=== PATIENT | female | born 1955 | race Caucasian/White ===

== ENCOUNTER 2016-09-29 14:24 | Outpatient (CLI) | payer MEDICAID | END 2016-09-29 14:25 | DX: E87.6 Hypokalemia (principal) ==

== ENCOUNTER 2016-10-04 12:18 | Outpatient (CLI) | payer MEDICAID | END 2016-10-04 12:19 | disposition home or self-care (01) | DX: R93.8 Abnormal findings on diagnostic imaging of other specified body structures (principal); N83.201 Unspecified ovarian cyst, right side ==

== ENCOUNTER 2021-10-12 21:05 | Inpatient (IN) | payer MEDICAID ==
[2021-10-12 21:32] LABS: BASOPHILS # (AUTO) 0.1 10^3/uL (0.0-0.1); BASOPHILS % (AUTO) 0.4 %
[2021-10-12 21:34] LABS: HCT - HEMATOCRIT 45.9 % (37.0-47.0); HGB - HEMOGLOBIN 15.1 g/dL (12.0-16.0); LYMPHOCYTES # (AUTO) 1.4 10^3/uL (1.5-3.5); LYMPHOCYTES % (AUTO) 7.4 %; MEAN CORPUSCULAR HGB CONC 32.9 g/dL (32.0-36.0); MEAN CORPUSCULAR VOLUME 88.3 fL (81.0-99.0); MEAN PLATELET VOLUME 10.4 fL (7.9-10.8); MONOCYTES # (AUTO) 1.1 10^3/uL (0.0-1.0); NEUTROPHILS # (AUTO) 15.6 10^3/uL (1.5-6.6); NEUTROPHILS % (AUTO) 85.8 %; PLT - PLATELET COUNT 354 10^3/uL (130-450); RED CELL DISTRIBUTION WIDTH 13.6 % (12.0-15.0); WHITE BLOOD COUNT 18.2 x10^3/uL (4.8-10.8)
[2021-10-12 21:44] LABS: ALBUMIN/GLOBULIN RATIO 1.1 (1.0-2.2); BILIRUBIN,TOTAL 0.5 mg/dL (0.2-1.0); CALCIUM 9.3 mg/dL (8.5-10.3); CREATININE 1.5 mg/dL (0.4-1.0); TOTAL PROTEIN 7.6 g/dL (6.7-8.2)
[2021-10-12] MEDS ORDERED: MORPHINE 2 MG/ML CARPUJECT IVP STA (21:46)
[2021-10-12] MEDS ORDERED: ONDANSETRON 4 MG/2 ML VIAL IVP STA ×2 (21:46→22:52)
[2021-10-12] MEDS ORDERED: SODIUM CHLORIDE 0.9% 1,000 ML IV STA (21:46)
[2021-10-12] MEDS ORDERED: HYDROmorphone 1 MG/ML CARPUJECT IVP STA ×2 (21:49→22:52)
[2021-10-12] MEDS ORDERED: IOVERSOL 320 100 ML VIAL IVP ONE ×2 (22:01→22:44)
--- NOTE | 2021-10-12 23:14 | CT Report ---
PROCEDURE: Abdomen/Pelvis W INDICATIONS: RLQ pain CONTRAST: IV CONTRAST: Optiray 320 ml: 100 PO CONTRAST: *NO PO CONTRAST TECHNIQUE: After the administration of intravenous contrast, 5 mm thick sections acquired from the diaphragms to the symphysis. 5 mm thick coronal and sagittal reformats were acquired. For radiation dose reducti on, the following was used: automated exposure control, adjustment of mA and/or kV according to allie ent size. COMPARISON: None. FINDINGS: Image quality: Excellent. ABDOMEN: Lung bases: Lung bases are clear. Heart size is normal. Solid organs: Liver and spleen are normal in size and enhancement. Mild, diffuse fatty infiltration of the liver. Gallbladder is surgically absent. Biliary system is non dilated. Pancreas enhances no rmally. No adrenal nodules. Kidneys demonstrate normal size and enhancement, without hydronephrosis . Peritoneum and bowel: Bowel loops demonstrate normal wall thickness and caliber. Scattered diverticu li noted in the colon. Inflammatory changes noted adjacent to the distal sigmoid colon region of dive rticulitis compatible with diverticulitis. No peridiverticular abscess small locules of free air note d in the region of diverticulitis compatible with microperforation. No free fluid or air. The appendi x is normal. Nodes and vessels: No retroperitoneal or mesenteric adenopathy by size criteria. Aorta and inferior vena cava are normal in size. Scattered atherosclerotic calcifications are noted in the abdominal an d pelvic vasculature. Miscellaneous: Right. Median supraumbilical ventral hernias noted which contains a small amount of un remarkable appearing fat. Small periumbilical hernia noted. PELVIS: Genitourinary: Bladder wall thickness is normal. Uterus is absent. Miscellaneous: No inguinal hernias or adenopathy. Bones: No suspicious bony lesions. No vertebral body compression fractures. Spine degenerative disc disease and facet arthropathy are noted. IMPRESSION: 1. Sigmoid colon diverticulitis. No peridiverticular abscess. Small free air locules noted in the reg ion of diverticulitis compatible with microperforation. 2. Appendix is normal. Reviewed by: Abigail Jackson MD, PhD on 10/12/2021 11:13 PM PDT Approved by: Abigail Jackson MD, PhD on 10/12/2021 11:13 PM PDT Station ID: [id number]
[2021-10-12] MEDS ORDERED: PIPERACILLIN/TAZOBACTAM 3.375 GM in SODIUM CHLORIDE 0.9% MINIBAG 100 ML IV STA (23:21)
--- NOTE | 2021-10-12 23:23 | ED Physician Documentation ---
PD HPI ABD PAIN - Stated complaint Stated Complaint: LOW ABD PX - Chief complaint Chief Complaint: Abd Pain - History obtained from History obtained from: Patient - Additional information Additional information: Patient with a history of hypertension (Off all medications for the past 1 year due to lack of health insurance)Presenting for evaluation of right lower quadrant abdominal pain which is been intermittently present for the last week. She reports several episodes of loose stools over the last few days which has been nonbloody. She has had associated nausea but no emesis.Movement makes the pain worse. Nothing makes it better. She denies radiation to the back. She denies dysuria, hematuria or other UTI symptoms. She denies history of similar symptoms. She does have a history of previous abdominal surgeries Including cholecystectomy and hysterectomy.She denies fever, chest pain, difficulty breathing. 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 - Present Medications Home Medications: Ambulatory Orders Medication Instructions Recorded Confirmed Aspirin 81 mg ORAL DAILY 07/29/16 07/29/16 Benzonatate 100 mg ORAL TID 07/29/16 07/29/16 Cyclobenzaprine [Flexeril] 5 - 20 mg PO DAILY PM 07/29/16 07/29/16 Duloxetine HCl 60 mg ORAL DAILY 07/29/16 07/29/16 Fexofenadine HCl 180 mg ORAL DAILY PRN 07/29/16 07/29/16 Losartan [Cozaar] 50 mg ORAL DAILY 07/29/16 07/29/16 Omeprazole 40 mg ORAL DAILY 07/29/16 07/29/16 Potassium Chloride 20 meq PO TID 07/29/16 07/29/16 Propranolol [Inderal] 10 mg ORAL BID 07/29/16 07/29/16 Terbinafine [Lamisil] 250 mg ORAL DAILY 07/29/16 07/29/16 Topiramate 100 mg ORAL BID 07/29/16 07/29/16 traMADol [Ultram] 50 mg ORAL BID PRN 07/29/16 07/29/16 - Allergies Allergies/Adverse Reactions: Allergies Allergy/AdvReac Type Severity Reaction Status Date / Time No Known Drug Allergies Allergy Verified 10/12/21 21:12 - Social History Does the pt smoke?: No Smoking Status: Former smoker Does the pt drink ETOH?: No Does the pt have substance abuse?: No - Immunizations Immunizations are current?: Yes - POLST Patient has POLST: No PD ED PE NORMAL - General General: Alert and oriented X 3, No acute distress, Well developed/nourished - HEENT HEENT: Atraumatic, Moist mucous membranes - Neck Neck: Supple, no meningeal sign - Cardiac Cardiac: RRR, Strong equal pulses - Respiratory Respiratory: No respiratory distress, Clear bilaterally - Abdomen Abdomen: Normal bowel sounds, Soft, Other (Exam limited due to body habitus,Tenderness to her right and left lower quadrant, No guarding) - Back Back: No CVA TTP - Derm Derm: Normal color, Warm and dry - Extremities Extremities: No deformity - Neuro Neuro: Normal speech - Psych Psych: Normal mood, Normal affect Results - Vitals Vitals: Vital Signs - 24 hr 10/12/21 10/12/21 10/12/21 21:07 21:12 23:38 Temperature 37.3 C 37.3 C Heart Rate 96 93 86 Respiratory 20 16 18 Rate Blood Pressure 206/117 H 170/110 H 179/98 H O2 Saturation 96 96 93 Oxygen O2 Source Room air - Labs Labs: Laboratory Tests 10/12/21 10/12/21 21:26 21:26 WBC 18.2 H RBC 5.20 Hgb 15.1 Hct 45.9 MCV 88.3 MCH 29.0 MCHC 32.9 RDW 13.6 Plt Count 354 MPV 10.4 Neut # (Auto) 15.6 H Lymph # (Auto) 1.4 L [place] # (Auto) 1.1 H Eos # (Auto) 0.0 Baso # (Auto) 0.1 Absolute Nucleated RBC 0.00 Nucleated RBC % 0.0 Sodium 141 Potassium 3.0 L Chloride 104 Carbon Dioxide 23 Anion Gap 14.0 H BUN 21 H Creatinine 1.5 H Estimated GFR (MDRD) 35 L Glucose 190 H Calcium 9.3 Total Bilirubin 0.5 AST 19 ALT 19 Alkaline Phosphatase 108 Total Protein 7.6 Albumin 4.0 Globulin 3.6 Albumin/Globulin Ratio 1.1 Lipase 26 PD MEDICAL DECISION MAKING - ED course ED course: Patient presenting for evaluation of lower abdominal pain. Blood pressure is elevated and patient has been noncompliant with antihypertensives due to lack of health insurance.It did improve as her pain was controlled. Labs are significant for leukocytosis and hypokalemia.CT demonstrates sigmoid diverticulitis with microperforation. The case was discussed with the hospitalist who agrees to admit the patient. Also requested a surgical consult. I did consult Dr. Herrera who will follow with the patient. Departure - Departure Disposition: [facility] DC/Xfer Clinical Impression: Sigmoid diverticulitis, Hypokalemia, RACH (acute kidney injury) Leukocytosis Qualifiers: Leukocytosis type: unspecified Qualified Code(s): D72.829 - Elevated white blood cell count, unspecified Discharge Date/Time: 10/13/21 00:21
[2021-10-12] MEDS ORDERED: HYDROmorphone 0.5 MG/0.5 ML SYRINGE IVP PRN (23:41)
[2021-10-12] MEDS: POTASSIUM CHLOR 10 MEQ/100 ML 10 MEQ/100 ML BAG IV SCH (23:46)
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
[2021-10-13] MEDS: ACETAMINOPHEN 325 MG TABLET PO PRN ×4 (01:08→22:23)
[2021-10-13] MEDS: POTASSIUM CHLOR 10 MEQ/100 ML 10 MEQ/100 ML BAG IV SCH ×5 (01:26→09:19)
[2021-10-13] MEDS: LACTATED RINGERS 1,000 ML IV SCH ×2 (01:26→11:21)
[2021-10-13] MEDS: SODIUM CHLORIDE FLUSH 0.9% 10 ML SYRINGE IVP SCH ×5 (01:26→08:08)
[2021-10-13] MEDS: HYDROmorphone 0.5 MG/0.5 ML SYRINGE IVP PRN ×8 (01:50→23:20)
[2021-10-13] MEDS ORDERED: PIPERACILLIN/TAZOBACTAM 3.375 GM in SODIUM CHLORIDE 0.9% MINIBAG 100 ML IV SCH ×2 (04:00→05:00)
[2021-10-13 05:04] LABS: BILIRUBIN,URINE NEGATIVE (NEGATIVE); GLUCOSE, URINE (UA) NEGATIVE (NEGATIVE); KETONES,URINE (UA) TRACE mg/dL (NEGATIVE); LEUKOCYTE ESTERASE, URINE NEGATIVE (NEGATIVE); NITRITE,URINE NEGATIVE (NEGATIVE); OCCULT BLOOD,URINE NEGATIVE (NEGATIVE); PH,URINE 5.5 PH (5.0-7.5); PROTEIN,URINE 100 mg/dL (NEGATIVE); UROBILINOGEN,URINE 0.2 (NORMAL) E.U./dL (NORMAL)
[2021-10-13 05:05] LABS: CLARITY,URINE CLEAR (CLEAR)
[2021-10-13 05:07] LABS: BASOPHILS # (AUTO) 0.1 10^3/uL (0.0-0.1); BASOPHILS % (AUTO) 0.3 %; HCT - HEMATOCRIT 42.2 % (37.0-47.0); HGB - HEMOGLOBIN 13.8 g/dL (12.0-16.0); LYMPHOCYTES # (AUTO) 0.9 10^3/uL (1.5-3.5); LYMPHOCYTES % (AUTO) 4.5 %; MEAN CORPUSCULAR HEMOGLOBIN 29.5 pg (27.0-31.0); MEAN CORPUSCULAR HGB CONC 32.7 g/dL (32.0-36.0); MEAN CORPUSCULAR VOLUME 90.2 fL (81.0-99.0); MEAN PLATELET VOLUME 10.5 fL (7.9-10.8); MONOCYTES % (AUTO) 5.2 %; NEUTROPHILS # (AUTO) 17.6 10^3/uL (1.5-6.6); NEUTROPHILS % (AUTO) 89.3 %; PLT - PLATELET COUNT 310 10^3/uL (130-450); RED BLOOD COUNT 4.68 10^6/uL (4.20-5.40); RED CELL DISTRIBUTION WIDTH 13.7 % (12.0-15.0); WHITE BLOOD COUNT 19.7 x10^3/uL (4.8-10.8)
[2021-10-13 05:12] LABS: BACTERIA,URINE Few /HPF (None Seen); RBC,URINE None Seen /HPF (0-5); SQUAMOUS EPITHELIAL CELL,UR MANY Squamous (<= Few); WBC,URINE 0-3 /HPF (0-5)
[2021-10-13 05:20] LABS: CALCIUM 8.7 mg/dL (8.5-10.3); CREATININE 1.1 mg/dL (0.4-1.0); MAGNESIUM 1.6 mg/dL (1.7-2.8); PHOSPHORUS 3.5 mg/dL (2.5-4.6); POTASSIUM 3.4 mmol/L (3.5-5.0)
[2021-10-13] MEDS ORDERED: traMADol 50 MG TABLET PO PRN (06:00)
[2021-10-13] MEDS ORDERED: MAGNESIUM SULFATE 2 GRAM 2 GM/50 ML BAG IV ONE (07:29)
--- NOTE | 2021-10-13 07:36 | PROVIDER PROGRESS NOTE ---
Subjective - Prog Note Date Prog Note Date: 10/13/21 - Subjective Subjective: She states her pain is still a 7 out of 10 in her right lower quadrant. Still feels nauseous. No diarrhea today. She denies any pain in the left lower quadrant. Current Medications - Current Medications Current Medications: Active Medications Acetaminophen (Acetaminophen 325 Mg Tablet) 650 mg PO Q4HR PRN PRN Reason: Pain or Fever > 38C (100.4F) Last Admin: 10/13/21 01:08 Dose: 650 mg Amlodipine Besylate (Amlodipine 5 Mg Tablet) 5 mg PO DAILY [facility] Hydromorphone HCl (Hydromorphone 0.5 Mg/0.5 Ml Syringe) 1 mg IVP Q2H PRN PRN Reason: Pain 8 to 10 Last Admin: 10/13/21 07:02 Dose: 1 mg Lactated Ringer's (Lr) 1,000 mls @ 100 mls/hr IV .Q10H [facility] Last Admin: 10/13/21 01:26 Dose: 100 mls/hr Piperacillin Sod/Tazobactam (Sod 3.375 gm/ Sodium Chloride) 100 mls @ 25 mls/hr IV Q8H [facility] Last Admin: 10/13/21 05:06 Dose: 25 mls/hr Potassium Chloride (Potassium Chloride) 10 meq in 100 mls @ 100 mls/hr IV Q1H [facility] Stop: 10/13/21 09:59 Magnesium Sulfate (Magnesium Sulfate) 2 gm in 50 mls @ 50 mls/hr IV ONCE ONE Stop: 10/13/21 08:28 Losartan Potassium (Losartan 50 Mg Tablet) 50 mg PO DAILY [facility] Nystatin (Nystatin Powder 15 Gm) 1 applic TOP BID [facility] Ondansetron HCl (Ondansetron 4 Mg/2 Ml Vial) 4 mg IVP Q6HR PRN PRN Reason: Nausea / Vomiting Sodium Chloride (Sodium Chloride Flush 0.9% 10 Ml Syringe) 10 ml IVP PRN PRN PRN Reason: NEEDED PER PROVIDER ORDERS Sodium Chloride (Sodium Chloride Flush 0.9% 10 Ml Syringe) 10 ml IVP 0100,0900,1700 [facility] Last Admin: 10/13/21 07:03 Dose: 10 ml Aspirin 81 mg ORAL DAILY 07/29/16 Benzonatate 100 mg ORAL TID 07/29/16 Cyclobenzaprine [Flexeril] 5 - 20 mg PO DAILY PM 07/29/16 Duloxetine HCl 60 mg ORAL DAILY 07/29/16 Fexofenadine HCl 180 mg ORAL DAILY PRN 07/29/16 Losartan [Cozaar] 50 mg ORAL DAILY 07/29/16 Omeprazole 40 mg ORAL DAILY 07/29/16 Potassium Chloride 20 meq PO TID 07/29/16 Propranolol [Inderal] 10 mg ORAL BID 07/29/16 Terbinafine [Lamisil] 250 mg ORAL DAILY 07/29/16 Topiramate 100 mg ORAL BID 07/29/16 traMADol [Ultram] 50 mg ORAL BID PRN 07/29/16 Objective - Vital Signs/Intake & Output Reviewed Vital Signs: Yes Vital Signs: Vital Signs x48h Temp Pulse Pulse Resp BP BP Pulse Ox 10/13/21 07:04 78 17 192/87 H 98 10/13/21 03:42 36.9 C 84 17 190/99 H 97 10/13/21 02:52 86 18 84 L 10/13/21 02:45 18 93 10/13/21 00:37 36.1 C L 89 20 179/94 H 95 10/12/21 23:38 86 18 179/98 H 93 Intake & Output: Intake & Output 10/10/21 10/11/21 10/12/21 10/13/21 22:59 23:59 23:59 23:59 Intake Total 300 1750 Output Total 300 Balance 300 1450 - Objective General Appearance: positive: Other (She is lethargic and will quickly fall asleep. Will wake up when aroused but will doze off during our conversation) Eyes Bilateral: positive: Conjunctivae nml ENT: positive: ENT inspection nml Neck: positive: Nml inspection Respiratory: positive: No respiratory distress. negative: Wheezes, Rales Cardiovascular: positive: Regular rate & rhythm. negative: Tachycardia Abdomen: positive: Tenderness (Right lower quadrant tenderness.), Other (Large pannus.). negative: Rebound Skin: positive: Warm, Dry Extremities: positive: No pedal edema Neurologic/Psychiatric: negative: Disoriented to person, Disoriented to place - Lab Results Fish Bones: 10/13/21 04:52 10/13/21 04:52 Other Labs: Lab Results x24hrs 10/13/21 10/13/21 10/13/21 Range/Units 04:52 04:52 04:52 WBC 19.7 H (4.8-10.8) x10^3/uL RBC 4.68 (4.20-5.40) 10^6/uL Hgb 13.8 (12.0-16.0) g/dL Hct 42.2 (37.0-47.0) % MCV 90.2 (81.0-99.0) fL MCH 29.5 (27.0-31.0) pg MCHC 32.7 (32.0-36.0) g/dL RDW 13.7 (12.0-15.0) % Plt Count 310 (130-450) 10^3/uL MPV 10.5 (7.9-10.8) fL Neut # (Auto) 17.6 H (1.5-6.6) 10^3/uL Lymph # (Auto) 0.9 L (1.5-3.5) 10^3/uL [place] # (Auto) 1.0 (0.0-1.0) 10^3/uL Eos # (Auto) 0.0 (0.0-0.7) 10^3/uL Baso # (Auto) 0.1 (0.0-0.1) 10^3/uL Absolute Nucleated RBC 0.00 x10^3/uL Nucleated RBC % 0.0 /100WBC Sodium 137 (135-145) mmol/L Potassium 3.4 L (3.5-5.0) mmol/L Chloride 102 (101-111) mmol/L Carbon Dioxide 21 (21-32) mmol/L Anion Gap 14.0 H (6-13) BUN 19 (6-20) mg/dL Creatinine 1.1 H (0.4-1.0) mg/dL Estimated GFR (MDRD) 50 L (>89) Glucose 171 H (70-100) mg/dL Calcium 8.7 (8.5-10.3) mg/dL Phosphorus 3.5 (2.5-4.6) mg/dL Magnesium 1.6 L (1.7-2.8) mg/dL Total Bilirubin (0.2-1.0) mg/dL AST (10-42) IU/L ALT (10-60) IU/L Alkaline Phosphatase (42-121) IU/L Total Protein (6.7-8.2) g/dL Albumin (3.2-5.5) g/dL Globulin (2.1-4.2) g/dL Albumin/Globulin Ratio (1.0-2.2) Lipase (22-51) U/L TSH 2.16 (0.34-5.60) uIU/mL Urine Color Urine Clarity (CLEAR) Urine pH (5.0-7.5) PH Ur Specific [place] (1.002-1.030) Urine Protein (NEGATIVE) mg/dL Urine Glucose (UA) (NEGATIVE) mg/dL Urine Ketones (NEGATIVE) mg/dL Urine Occult Blood (NEGATIVE) Urine Nitrite (NEGATIVE) Urine Bilirubin (NEGATIVE) Urine Urobilinogen (NORMAL) E.U./dL Ur Leukocyte Esterase (NEGATIVE) Urine RBC (0-5) /HPF Urine WBC (0-5) /HPF Ur Squamous Epith Cells (<= Few) Urine Bacteria (None Seen) /HPF Ur Microscopic Review Urine Culture Comments SARS-CoV-2 (PCR) 10/13/21 10/12/21 10/12/21 Range/Units 04:20 23:27 21:26 WBC (4.8-10.8) x10^3/uL RBC (4.20-5.40) 10^6/uL Hgb (12.0-16.0) g/dL Hct (37.0-47.0) % MCV (81.0-99.0) fL MCH (27.0-31.0) pg MCHC (32.0-36.0) g/dL RDW (12.0-15.0) % Plt Count (130-450) 10^3/uL MPV (7.9-10.8) fL Neut # (Auto) (1.5-6.6) 10^3/uL Lymph # (Auto) (1.5-3.5) 10^3/uL [place] # (Auto) (0.0-1.0) 10^3/uL Eos # (Auto) (0.0-0.7) 10^3/uL Baso # (Auto) (0.0-0.1) 10^3/uL Absolute Nucleated RBC x10^3/uL Nucleated RBC % /100WBC Sodium 141 (135-145) mmol/L Potassium 3.0 L (3.5-5.0) mmol/L Chloride 104 (101-111) mmol/L Carbon Dioxide 23 (21-32) mmol/L Anion Gap 14.0 H (6-13) BUN 21 H (6-20) mg/dL Creatinine 1.5 H (0.4-1.0) mg/dL Estimated GFR (MDRD) 35 L (>89) Glucose 190 H (70-100) mg/dL Calcium 9.3 (8.5-10.3) mg/dL Phosphorus (2.5-4.6) mg/dL Magnesium (1.7-2.8) mg/dL Total Bilirubin 0.5 (0.2-1.0) mg/dL AST 19 (10-42) IU/L ALT 19 (10-60) IU/L Alkaline Phosphatase 108 (42-121) IU/L Total Protein 7.6 (6.7-8.2) g/dL Albumin 4.0 (3.2-5.5) g/dL Globulin 3.6 (2.1-4.2) g/dL Albumin/Globulin Ratio 1.1 (1.0-2.2) Lipase 26 (22-51) U/L TSH (0.34-5.60) uIU/mL Urine Color YELLOW Urine Clarity CLEAR (CLEAR) Urine pH 5.5 (5.0-7.5) PH Ur Specific [place] 1.020 (1.002-1.030) Urine Protein 100 H (NEGATIVE) mg/dL Urine Glucose (UA) NEGATIVE (NEGATIVE) mg/dL Urine Ketones TRACE (NEGATIVE) mg/dL Urine Occult Blood NEGATIVE (NEGATIVE) Urine Nitrite NEGATIVE (NEGATIVE) Urine Bilirubin NEGATIVE (NEGATIVE) Urine Urobilinogen 0.2 (NORMAL) (NORMAL) E.U./dL Ur Leukocyte Esterase NEGATIVE (NEGATIVE) Urine RBC None Seen (0-5) /HPF Urine WBC 0-3 (0-5) /HPF Ur Squamous Epith Cells MANY Squamous H (<= Few) Urine Bacteria Few (None Seen) /HPF Ur Microscopic Review INDICATED Urine Culture Comments NOT INDICATED SARS-CoV-2 (PCR) NOT DETECTED 10/12/21 Range/Units 21:26 WBC 18.2 H (4.8-10.8) x10^3/uL RBC 5.20 (4.20-5.40) 10^6/uL Hgb 15.1 (12.0-16.0) g/dL Hct 45.9 (37.0-47.0) % MCV 88.3 (81.0-99.0) fL MCH 29.0 (27.0-31.0) pg MCHC 32.9 (32.0-36.0) g/dL RDW 13.6 (12.0-15.0) % Plt Count 354 (130-450) 10^3/uL MPV 10.4 (7.9-10.8) fL Neut # (Auto) 15.6 H (1.5-6.6) 10^3/uL Lymph # (Auto) 1.4 L (1.5-3.5) 10^3/uL [place] # (Auto) 1.1 H (0.0-1.0) 10^3/uL Eos # (Auto) 0.0 (0.0-0.7) 10^3/uL Baso # (Auto) 0.1 (0.0-0.1) 10^3/uL Absolute Nucleated RBC 0.00 x10^3/uL Nucleated RBC % 0.0 /100WBC Sodium (135-145) mmol/L Potassium (3.5-5.0) mmol/L Chloride (101-111) mmol/L Carbon Dioxide (21-32) mmol/L Anion Gap (6-13) BUN (6-20) mg/dL Creatinine (0.4-1.0) mg/dL Estimated GFR (MDRD) (>89) Glucose (70-100) mg/dL Calcium (8.5-10.3) mg/dL Phosphorus (2.5-4.6) mg/dL Magnesium (1.7-2.8) mg/dL Total Bilirubin (0.2-1.0) mg/dL AST (10-42) IU/L ALT (10-60) IU/L Alkaline Phosphatase (42-121) IU/L Total Protein (6.7-8.2) g/dL Albumin (3.2-5.5) g/dL Globulin (2.1-4.2) g/dL Albumin/Globulin Ratio (1.0-2.2) Lipase (22-51) U/L TSH (0.34-5.60) uIU/mL Urine Color Urine Clarity (CLEAR) Urine pH (5.0-7.5) PH Ur Specific [place] (1.002-1.030) Urine Protein (NEGATIVE) mg/dL Urine Glucose (UA) (NEGATIVE) mg/dL Urine Ketones (NEGATIVE) mg/dL Urine Occult Blood (NEGATIVE) Urine Nitrite (NEGATIVE) Urine Bilirubin (NEGATIVE) Urine Urobilinogen (NORMAL) E.U./dL Ur Leukocyte Esterase (NEGATIVE) Urine RBC (0-5) /HPF Urine WBC (0-5) /HPF Ur Squamous Epith Cells (<= Few) Urine Bacteria (None Seen) /HPF Ur Microscopic Review Urine Culture Comments SARS-CoV-2 (PCR) ABX Reporting Has patient been on IV antibiotics over the past 48 hours?: Yes Assessment/Plan - Problem List (1) Sigmoid diverticulitis Impression: CT confirmed sigmoid diverticulitis with microperforations. She still has ab dominal pain although she does quickly fall asleep on my examination which I suspect is related to the Dilaudid she is receiving. Her white blood cell count is also elevated and slightly increased compared to yesterday. Spoke with general surgery and they have recommended broadening her antibiotics to vancomycin, cefepime, Flagyl IV. They also recommended making her n.p.o. with sips so we will change this. We will continue IV hydration. Pain control Dilaudid as needed. Will need to consider repeat imaging if there is no clinical improvement over the next 48 hours or so. (2) RACH (acute kidney injury) Impression: This is now resolved. This was secondary to hypovolemia secondary to GI losses. Her creatinine is now 1.1 compared to 1.5 on admission. Her baseline is approximately 1.0. We will resume losartan for her hypertension today. We will continue with gentle IV hydration as she remains on clear liquid diet. (3) HTN (hypertension) Impression: She remains quite hypertensive with systolics in the 190s. We will start her on 5 mg of amlodipine and losartan 50 mg today. (4) Hypokalemia Impression: This was likely secondary to GI losses. Potassium is improved but still decreased at 3.4. We will replace this as well as the hypomagnesemia. (5) Fibromyalgia Impression: It appears she was previously on fluoxetine for her fibromyalgia. We will look to resume this.
[2021-10-13] MEDS: LOSARTAN 50 MG TABLET PO SCH (08:08)
[2021-10-13] MEDS: amLODIPine 5 MG TABLET PO SCH (08:08)
[2021-10-13] MEDS: ONDANSETRON 4 MG/2 ML VIAL IVP PRN ×3 (08:17→21:59)
--- NOTE | 2021-10-13 10:59 | PHARMACY PROGRESS NOTE ---
- Best Possible Medication History Admit Date and Time: 10/12/21 6133 Processed by: Pharmacy Medication History completed: Yes Patient Interview: Pt interview ONLY source As the person ultimately responsible for medication therapy, providers are able to order a medication from an existing home medication list in [facility] via the "Reconcile Routine" prior to Confirmation of that medication by computer network support specialist. Such practice is discouraged except when the physician, in their clinical judgment, deems that a medical need exists for a medication without regard to previous use.
[2021-10-13] MEDS: NYSTATIN POWDER 15 GM TOP SCH ×2 (11:20→20:16)
[2021-10-13] MEDS: SODIUM CHLORIDE FLUSH 0.9% 10 ML SYRINGE IVP PRN ×4 (11:21→23:19)
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
[2021-10-13] MEDS: metroNIDAZOLE 500 MG/100 ML 500 MG/100 ML BAG IV SCH ×2 (12:50→18:52)
[2021-10-13] MEDS ORDERED: VANCOMYCIN INJ 2 GM, VANCOMYCIN INJ 500 MG in SODIUM CHLORIDE 0.9% 500 ML IV SCH (13:00)
[2021-10-13 13:07] LABS: ESTIMATED AVERAGE GLUCOSE 137 mg/dL (70-100); HEMOGLOBIN A1c% 6.4 % (4.27-6.07)
--- NOTE | 2021-10-13 13:15 | PHARMACY PROGRESS NOTE ---
- Therapy Status Vancomycin regimen day #: 1 Therapy status: Awaiting steady state Basis for treatment: Empirical Treatment indication: SEPSIS Trough goal: 15-20 Concurrent antibiotics: CEFEPIME AND METRONIDAZOLE - RACH Risk Risk level for Acute Kidney Injury: High Acute Kidney Injury risk factors: Wt >100kg or BMI >40, IV contrast within 72 hrs, Goal trough >15, Chronic baseline hypertension, Diabetes, Admission to ICU, Sepsis - Monitoring and Recommendation Clinical response to treatment: I&O Previous 24 hours 10/11/21 10/12/21 10/13/21 23:59 23:59 23:59 Intake Total 300 3091.667 Output Total 300 Balance 300 2791.667 Lab Results 10/13/21 10/12/21 04:52 21:26 BUN 19 21 H Creatinine 1.1 H 1.5 H Estimated GFR (MDRD) 50 L 35 L Monitoring plan: Daily serum creatinine, Suggest ongoing fluid replacement Next trough due prior to maintenance dose #: 4 Next trough due (date/time): 10/17/21 @ 1300 Areas for additional monitoring: IV to PO when appropriate, Therapy de- escalation based on culture results, Acute Kidney Injury Pharmacy recommendation: Continue current regime
[2021-10-13] MEDS: CEFEPIME 2 GM in SODIUM CHLORIDE 0.9% MINIBAG 100 ML IV SCH (20:17)
[2021-10-14] MEDS: LACTATED RINGERS 1,000 ML IV SCH ×3 (00:12→20:10)
[2021-10-14] MEDS: HYDROmorphone 0.5 MG/0.5 ML SYRINGE IVP PRN ×4 (01:33→16:16)
[2021-10-14] MEDS: metroNIDAZOLE 500 MG/100 ML 500 MG/100 ML BAG IV SCH ×3 (03:58→20:24)
[2021-10-14] MEDS: ONDANSETRON 4 MG/2 ML VIAL IVP PRN ×2 (04:37)
[2021-10-14 05:56] LABS: BASOPHILS % (AUTO) 0.2 %; EOSINOPHILS # (AUTO) 0.1 10^3/uL (0.0-0.7); EOSINOPHILS % (AUTO) 0.5 %; HCT - HEMATOCRIT 39.4 % (37.0-47.0); HGB - HEMOGLOBIN 12.3 g/dL (12.0-16.0); LYMPHOCYTES # (AUTO) 0.7 10^3/uL (1.5-3.5); LYMPHOCYTES % (AUTO) 4.1 %; MEAN CORPUSCULAR HEMOGLOBIN 28.8 pg (27.0-31.0); MEAN CORPUSCULAR HGB CONC 31.2 g/dL (32.0-36.0); MEAN CORPUSCULAR VOLUME 92.3 fL (81.0-99.0); MEAN PLATELET VOLUME 10.8 fL (7.9-10.8); MONOCYTES # (AUTO) 0.7 10^3/uL (0.0-1.0); MONOCYTES % (AUTO) 4.2 %; NEUTROPHILS # (AUTO) 14.9 10^3/uL (1.5-6.6); NEUTROPHILS % (AUTO) 90.3 %; PLT - PLATELET COUNT 266 10^3/uL (130-450); RED BLOOD COUNT 4.27 10^6/uL (4.20-5.40); RED CELL DISTRIBUTION WIDTH 14.1 % (12.0-15.0); WHITE BLOOD COUNT 16.5 x10^3/uL (4.8-10.8)
[2021-10-14 06:01] LABS: CALCIUM 8.9 mg/dL (8.5-10.3); CREATININE 0.9 mg/dL (0.4-1.0); POTASSIUM 3.8 mmol/L (3.5-5.0)
[2021-10-14] MEDS ORDERED: TOPIRAMATE 25 MG TABLET PO SCH ×2 (06:30→09:00)
[2021-10-14] MEDS ORDERED: SUMAtriptan 6 MG/0.5 ML VIAL SUBQ ONE (06:41)
[2021-10-14] MEDS ORDERED: PROCHLORPERAZINE 10 MG/2 ML VIAL IVP PRN (06:41)
--- NOTE | 2021-10-14 07:44 | PROVIDER PROGRESS NOTE ---
Subjective - Prog Note Date Prog Note Date: 10/14/21 - Subjective Subjective: She feels improved today. Still has a headache which is about a 4 out of 10. Her right that abdominal pain is a 4 out of 10 today. No nausea or vomiting. She not have much of an appetite. Current Medications - Current Medications Current Medications: Active Medications Acetaminophen (Acetaminophen 325 Mg Tablet) 650 mg PO Q4HR PRN PRN Reason: Pain or Fever > 38C (100.4F) Last Admin: 10/13/21 22:23 Dose: 650 mg Acetaminophen/Butalbital/Caffeine (Butalb/Acetam/Caff 50/325/40mg Tablet) 1 tab PO Q4HR PRN PRN Reason: HEADACHE Amlodipine Besylate (Amlodipine 5 Mg Tablet) 5 mg PO DAILY [facility] Last Admin: 10/13/21 08:08 Dose: 5 mg Hydralazine HCl (Hydralazine Inj 20 Mg/Ml Vial) 10 mg IVP Q4HR PRN PRN Reason: SBP>170 or DBP>100 Hydromorphone HCl (Hydromorphone 0.5 Mg/0.5 Ml Syringe) 1 mg IVP Q2H PRN PRN Reason: Pain 8 to 10 Last Admin: 10/14/21 04:21 Dose: 1 mg Lactated Ringer's (Lr) 1,000 mls @ 100 mls/hr IV .Q10H [facility] Last Admin: 10/14/21 00:12 Dose: 100 mls/hr Cefepime HCl 2 gm/ Sodium (Chloride) 100 mls @ 200 mls/hr IV BID [facility] Last Infusion: 10/13/21 20:52 Dose: Infused Metronidazole (Flagyl 500 Mg/100 Ml) 500 mg in 100 mls @ 100 mls/hr IV Q8H [facility] Last Infusion: 10/14/21 05:00 Dose: Infused Vancomycin HCl 1 gm/Vancomycin HCl 500 mg/ Sodium Chloride 500 mls @ 250 mls/hr IV Q18H [facility] Losartan Potassium (Losartan 50 Mg Tablet) 50 mg PO DAILY [facility] Last Admin: 10/13/21 08:08 Dose: 50 mg Nystatin (Nystatin Powder 15 Gm) 1 applic TOP BID [facility] Last Admin: 10/13/21 20:16 Dose: 1 applic Ondansetron HCl (Ondansetron 4 Mg/2 Ml Vial) 4 mg IVP Q4HR PRN PRN Reason: Nausea / Vomiting Last Admin: 10/14/21 04:37 Dose: 4 mg Prochlorperazine Edisylate (Prochlorperazine 10 Mg/2 Ml Vial) 10 mg IVP Q6HR PRN PRN Reason: Nausea / Vomiting Sodium Chloride (Sodium Chloride Flush 0.9% 10 Ml Syringe) 10 ml IVP PRN PRN PRN Reason: NEEDED PER PROVIDER ORDERS Last Admin: 10/13/21 23:19 Dose: 10 ml Sodium Chloride (Sodium Chloride Flush 0.9% 10 Ml Syringe) 10 ml IVP 0100,0900,1700 [facility] Last Admin: 10/13/21 08:08 Dose: 10 ml No Known Home Medications 10/13/21 Objective - Vital Signs/Intake & Output Reviewed Vital Signs: Yes Vital Signs: Vital Signs x48h Temp Pulse Resp BP BP Pulse Ox 10/14/21 04:51 36.6 C 73 20 192/90 H 98 10/14/21 00:04 36.3 C L 67 21 198/81 H 96 Intake & Output: Intake & Output 10/11/21 10/12/21 10/13/21 10/14/21 23:59 23:59 23:59 23:59 Intake Total 300 4453.334 473.333 Output Total 1000 225 Balance 300 3453.334 248.333 - Objective General Appearance: positive: No acute distress, Alert Eyes Bilateral: positive: Normal inspection, Conjunctivae nml ENT: positive: ENT inspection nml Neck: positive: Nml inspection Respiratory: positive: No respiratory distress. negative: Wheezes, Rales Cardiovascular: positive: Regular rate & rhythm. negative: Tachycardia Abdomen: positive: No distention, Tenderness (Right lower quadrant). negative: Guarding, Rebound Skin: positive: Warm, Dry Neurologic/Psychiatric: negative: Disoriented to person, Disoriented to place - Lab Results Fish Bones: 10/14/21 04:32 10/14/21 04:32 Other Labs: Lab Results x24hrs 10/14/21 10/14/21 10/13/21 Range/Units 04:32 04:32 04:52 WBC 16.5 H (4.8-10.8) x10^3/uL RBC 4.27 (4.20-5.40) 10^6/uL Hgb 12.3 (12.0-16.0) g/dL Hct 39.4 (37.0-47.0) % MCV 92.3 (81.0-99.0) fL MCH 28.8 (27.0-31.0) pg MCHC 31.2 L (32.0-36.0) g/dL RDW 14.1 (12.0-15.0) % Plt Count 266 (130-450) 10^3/uL MPV 10.8 (7.9-10.8) fL Neut # (Auto) 14.9 H (1.5-6.6) 10^3/uL Lymph # (Auto) 0.7 L (1.5-3.5) 10^3/uL [place] # (Auto) 0.7 (0.0-1.0) 10^3/uL Eos # (Auto) 0.1 (0.0-0.7) 10^3/uL Baso # (Auto) 0.0 (0.0-0.1) 10^3/uL Absolute Nucleated RBC 0.00 x10^3/uL Nucleated RBC % 0.0 /100WBC Sodium 139 (135-145) mmol/L Potassium 3.8 (3.5-5.0) mmol/L Chloride 100 L (101-111) mmol/L Carbon Dioxide 26 (21-32) mmol/L Anion Gap 13.0 (6-13) BUN 15 (6-20) mg/dL Creatinine 0.9 (0.4-1.0) mg/dL Estimated GFR (MDRD) 63 L (>89) Glucose 144 H (70-100) mg/dL Estimat Average Glucose 137 H (70-100) mg/dL Hemoglobin A1c % 6.4 H (4.27-6.07) % Calcium 8.9 (8.5-10.3) mg/dL Magnesium 2.0 (1.7-2.8) mg/dL ABX Reporting Has patient been on IV antibiotics over the past 48 hours?: Yes Assessment/Plan - Problem List (1) Sigmoid diverticulitis Impression: She appears improved as her pain has decreased and her white blood cell count is also improving. Yesterday we broadened her antibiotics to vancomycin, Cefepime, Flagyl. If she continues to improve then we will discontinue the vancomycin as the cefepime and Flagyl should provide adequate coverage for gram-negative's and anaerobes. We will keep her n.p.o. but if she continues to improve we will look to advance her to clear liquid diet in the morning. Pain control with Dilaudid, Toradol as needed. Zofran as needed for nausea. Appreciate general surgery input. (2) HTN (hypertension) Impression: She remains quite hypertensive with systolics in the 190s. Yesterday we had resumed amlodipine and losartan. I will increase these to 10 mg and 100 mg respectively. She also informed today she was on spironolactone and we will consider adding this as well. (3) Headache Impression: This is chronic problem for her and she was previously on Topamax with Excedrin as needed. Do not have Topamax available here but we will prescribe Fioricet as needed for her headache. We will also look to restart Topamax 25 mg daily on discharge and she can follow-up with her primary care physician to have this titrated back to her previous dose of 100 mg. (4) Fibromyalgia Impression: Stable. She will need outpatient follow-up with her primary care physician for management of this once discharged. (5) Hypokalemia Impression: This was secondary to GI losses and has resolved. (6) RACH (acute kidney injury) Impression: This is now resolved and is likely due to hypovolemia.
[2021-10-14] MEDS: amLODIPine 5 MG TABLET PO SCH (08:03)
[2021-10-14] MEDS: LOSARTAN 50 MG TABLET PO SCH (08:04)
[2021-10-14] MEDS: VANCOMYCIN INJ 1 GM, VANCOMYCIN INJ 500 MG in SODIUM CHLORIDE 0.9% 500 ML IV SCH (08:08)
[2021-10-14] MEDS: NYSTATIN POWDER 15 GM TOP SCH ×2 (08:14→21:09)
[2021-10-14] MEDS: CEFEPIME 2 GM in SODIUM CHLORIDE 0.9% MINIBAG 100 ML IV SCH ×2 (10:17→21:40)
[2021-10-14] MEDS: BUTALB/ACETAM/CAFF 50/325/40MG TABLET PO PRN ×2 (10:23→17:56)
[2021-10-14] MEDS: ENOXAPARIN 40 MG/0.4 ML SYRINGE SUBQ SCH (10:24)
[2021-10-14] MEDS: KETOROLAC 15 MG/ML VIAL IVP PRN (10:24)
[2021-10-14] MEDS ORDERED: amLODIPine 5 MG TABLET PO STA (12:48)
--- NOTE | 2021-10-14 12:53 | PHARMACY PROGRESS NOTE ---
- Best Possible Medication History Admit Date and Time: 10/12/21 4394 Processed by: Nursing Medication History completed: Yes Patient Interview: Completed Secondary Source(s): Written medication list Patient provided nursing with a list of medications she was on. RN, Paige, reviewed each medication on the list with the patient and patient states these should all be included on her medication list. Per admission note, patient has not had a PCP so has not been taking her routine prescription medications. List was updated to reflect prior medications if provider wishes to restart any of them. As the person ultimately responsible for medication therapy, providers are able to order a medication from an existing home medication list in [facility] via the "Reconcile Routine" prior to Confirmation of that medication by senior office support assistant sosa. Such practice is discouraged except when the physician, in their clinical judgment, deems that a medical need exists for a medication without regard to previous use.
[2021-10-14] MEDS: SODIUM CHLORIDE FLUSH 0.9% 10 ML SYRINGE IVP PRN (13:15)
[2021-10-14] MEDS: SODIUM CHLORIDE FLUSH 0.9% 10 ML SYRINGE IVP SCH (16:28)
--- NOTE | 2021-10-14 17:53 | PROVIDER PROGRESS NOTE ---
Subjective - General Admit Date: 10/12/21 - Review of Systems All Other Systems: positive: Reviewed and negative - Other Other Information/Narrative: Lexus is remarkably better today than she was at the date of admission. She is awake and alert and able to hold a clear conversation. She says that she only has difficulty with pain when she moves. Her headache is better and her abdominal pain is better.She is not particularly hungry but she says she could eat. Objective - Patient Data Reviewed Vital Signs: Yes Vital Signs: Vital Signs x48h Temp Pulse Pulse Resp BP Pulse Ox 10/14/21 15:33 36.5 C 68 19 153/84 H 96 10/14/21 12:47 69 188/94 H 10/14/21 12:02 36.8 C 67 20 95 10/14/21 11:49 36.8 C 67 20 192/97 H 93 Weight: Weight 10/12/21 10/13/21 10/14/21 23:59 23:59 23:59 Weight (kg) 108.862 kg 106 kg 108 kg Intake & Output: Intake and Output Totals x24h 10/12/21 10/13/21 10/14/21 23:59 23:59 23:59 Intake Total 300 4453.334 1975.000 Output Total 1000 700 Balance 300 3453.334 1275.000 - Lab Results Lab Results: 10/15/21 04:28 10/15/21 04:28 Other Lab Results: Lab Results x24hrs 10/14/21 10/14/21 Range/Units 04:32 04:32 WBC 16.5 H (4.8-10.8) x10^3/uL RBC 4.27 (4.20-5.40) 10^6/uL Hgb 12.3 (12.0-16.0) g/dL Hct 39.4 (37.0-47.0) % MCV 92.3 (81.0-99.0) fL MCH 28.8 (27.0-31.0) pg MCHC 31.2 L (32.0-36.0) g/dL RDW 14.1 (12.0-15.0) % Plt Count 266 (130-450) 10^3/uL MPV 10.8 (7.9-10.8) fL Neut # (Auto) 14.9 H (1.5-6.6) 10^3/uL Lymph # (Auto) 0.7 L (1.5-3.5) 10^3/uL [place] # (Auto) 0.7 (0.0-1.0) 10^3/uL Eos # (Auto) 0.1 (0.0-0.7) 10^3/uL Baso # (Auto) 0.0 (0.0-0.1) 10^3/uL Absolute Nucleated RBC 0.00 x10^3/uL Nucleated RBC % 0.0 /100WBC Sodium 139 (135-145) mmol/L Potassium 3.8 (3.5-5.0) mmol/L Chloride 100 L (101-111) mmol/L Carbon Dioxide 26 (21-32) mmol/L Anion Gap 13.0 (6-13) BUN 15 (6-20) mg/dL Creatinine 0.9 (0.4-1.0) mg/dL Estimated GFR (MDRD) 63 L (>89) Glucose 144 H (70-100) mg/dL Calcium 8.9 (8.5-10.3) mg/dL Magnesium 2.0 (1.7-2.8) mg/dL - Current Medications Current Medications: Current Medications Generic Name Dose Route Start Last Admin Trade Name Freq PRN Reason Stop Dose Admin Acetaminophen 650 mg 10/12/21 23:41 10/13/21 22:23 Acetaminophen 325 Mg Tablet PO 650 mg Q4HR PRN Administration Pain or Fever > 38C (100.4F) Acetaminophen/Butalbital/Caffeine 1 tab 10/14/21 06:40 10/14/21 10:23 Butalb/Acetam/Caff 50/325/40mg Tablet PO 1 tab Q4HR PRN Administration HEADACHE Enoxaparin Sodium 40 mg 10/14/21 11:00 10/14/21 10:24 Enoxaparin 40 Mg/0.4 Ml Syringe SUBQ 40 mg DAILY [facility]STOPE[facility] Administration Hydromorphone HCl 1 mg 10/13/21 00:44 10/14/21 16:16 Hydromorphone 0.5 Mg/0.5 Ml Syringe IVP 1 mg Q2H PRN Administration Pain 8 to 10 Lactated Ringer's 1,000 mls @ 100 mls/hr 10/12/21 23:45 10/14/21 12:47 Lr IV 100 mls/hr .Q10H [facility] Infusion Cefepime HCl 2 gm/ Sodium 100 mls @ 200 mls/hr 10/13/21 21:00 10/14/21 10:55 Chloride IV Infused BID [facility] Infusion Metronidazole 500 mg in 100 mls @ 100 mls/hr 10/13/21 12:00 10/14/21 12:10 Flagyl 500 Mg/100 Ml IV Infused Q8H [facility] Infusion Vancomycin HCl 1 gm/ 500 mls @ 250 mls/hr 10/14/21 08:00 10/14/21 10:15 Vancomycin HCl 500 mg/ Sodium IV Infused Chloride Q18H [facility] Infusion Ketorolac Tromethamine 15 mg 10/14/21 10:08 10/14/21 10:24 Ketorolac 15 Mg/Ml Vial IVP 10/19/21 10:07 15 mg Q6HR PRN Administration PAIN Nystatin 1 applic 10/13/21 09:00 10/14/21 08:14 Nystatin Powder 15 Gm TOP 1 applic BID [facility]STOPHER Administration Ondansetron HCl 4 mg 10/13/21 21:54 10/14/21 04:37 Ondansetron 4 Mg/2 Ml Vial IVP 4 mg Q4HR PRN Administration Nausea / Vomiting Sodium Chloride 10 ml 10/12/21 23:41 10/14/21 13:15 Sodium Chloride Flush 0.9% 10 Ml Syringe IVP 10 ml PRN PRN Administration NEEDED PER PROVIDER ORDERS Sodium Chloride 10 ml 10/13/21 01:00 10/14/21 16:28 Sodium Chloride Flush 0.9% 10 Ml Syringe IVP Not Given 0100,0900,1700 [facility] - Physical Exam Abdomen: positive: Nml bowel sounds, Tenderness ABX Reporting Has patient been on IV antibiotics over the past 48 hours?: Yes Impression/Plan - Problem List Problem List: Agree with all excellent care being provided. She is responding well to conservative management and will almost certainly continue to improve. If she should take a step backwards with worsening pain or elevation in white count, would reconsider repeated imaging. Would continue antibiotics for now and plan to refer for colonoscopy as an outpatient in about 8 to 12 weeks. We will be available if needed.
[2021-10-15] MEDS: SODIUM CHLORIDE FLUSH 0.9% 10 ML SYRINGE IVP SCH ×4 (00:28→23:55)
[2021-10-15] MEDS: VANCOMYCIN INJ 1 GM, VANCOMYCIN INJ 500 MG in SODIUM CHLORIDE 0.9% 500 ML IV SCH (01:01)
[2021-10-15] MEDS: BUTALB/ACETAM/CAFF 50/325/40MG TABLET PO PRN ×3 (01:27→21:19)
[2021-10-15] MEDS: metroNIDAZOLE 500 MG/100 ML 500 MG/100 ML BAG IV SCH ×3 (04:36→21:13)
[2021-10-15 05:22] LABS: BASOPHILS % (AUTO) 0.3 %; HCT - HEMATOCRIT 34.7 % (37.0-47.0); LYMPHOCYTES % (AUTO) 8.8 %; MEAN CORPUSCULAR HEMOGLOBIN 28.6 pg (27.0-31.0); MEAN CORPUSCULAR HGB CONC 31.7 g/dL (32.0-36.0); MEAN CORPUSCULAR VOLUME 90.4 fL (81.0-99.0); MEAN PLATELET VOLUME 10.9 fL (7.9-10.8); MONOCYTES # (AUTO) 0.7 10^3/uL (0.0-1.0); NEUTROPHILS # (AUTO) 9.1 10^3/uL (1.5-6.6); PLT - PLATELET COUNT 252 10^3/uL (130-450); RED BLOOD COUNT 3.84 10^6/uL (4.20-5.40); WHITE BLOOD COUNT 10.8 x10^3/uL (4.8-10.8)
[2021-10-15 05:28] LABS: CALCIUM 8.3 mg/dL (8.5-10.3); CREATININE 0.9 mg/dL (0.4-1.0); MAGNESIUM 1.9 mg/dL (1.7-2.8)
[2021-10-15] MEDS: hydrALAZINE INJ 20 MG/ML VIAL IVP PRN ×2 (05:55)
[2021-10-15] MEDS: LACTATED RINGERS 1,000 ML IV SCH ×2 (05:55→16:38)
[2021-10-15] MEDS ORDERED: POTASSIUM CHLORIDE 20 MEQ TABLET PO ONE (07:45)
--- NOTE | 2021-10-15 07:45 | PROVIDER PROGRESS NOTE ---
Subjective - Prog Note Date Prog Note Date: 10/15/21 - Subjective Subjective: She feels much better today. Pain is about a 4 out of 10 and still located in right lower quadrant. No nausea or vomiting. Current Medications - Current Medications Current Medications: Active Medications Acetaminophen (Acetaminophen 325 Mg Tablet) 650 mg PO Q4HR PRN PRN Reason: Pain or Fever > 38C (100.4F) Last Admin: 10/13/21 22:23 Dose: 650 mg Acetaminophen/Butalbital/Caffeine (Butalb/Acetam/Caff 50/325/40mg Tablet) 1 tab PO Q4HR PRN PRN Reason: HEADACHE Last Admin: 10/15/21 06:34 Dose: 1 tab Amlodipine Besylate (Amlodipine 5 Mg Tablet) 10 mg PO DAILY [facility] Enoxaparin Sodium (Enoxaparin 40 Mg/0.4 Ml Syringe) 40 mg SUBQ DAILY [facility] Last Admin: 10/14/21 10:24 Dose: 40 mg Hydralazine HCl (Hydralazine Inj 20 Mg/Ml Vial) 10 mg IVP Q4HR PRN PRN Reason: SBP>170 or DBP>100 Last Admin: 10/15/21 05:55 Dose: 10 mg Hydromorphone HCl (Hydromorphone 0.5 Mg/0.5 Ml Syringe) 1 mg IVP Q2H PRN PRN Reason: Pain 8 to 10 Last Admin: 10/14/21 16:16 Dose: 1 mg Lactated Ringer's (Lr) 1,000 mls @ 100 mls/hr IV .Q10H [facility] Last Admin: 10/15/21 05:55 Dose: 100 mls/hr Cefepime HCl 2 gm/ Sodium (Chloride) 100 mls @ 200 mls/hr IV BID [facility] Last Infusion: 10/14/21 22:31 Dose: Infused Metronidazole (Flagyl 500 Mg/100 Ml) 500 mg in 100 mls @ 100 mls/hr IV Q8H [facility] Last Infusion: 10/15/21 05:39 Dose: Infused Ketorolac Tromethamine (Ketorolac 15 Mg/Ml Vial) 15 mg IVP Q6HR PRN PRN Reason: PAIN Stop: 10/19/21 10:07 Last Admin: 10/15/21 00:00 Dose: 15 mg Losartan Potassium (Losartan 50 Mg Tablet) 100 mg PO DAILY [facility] Nystatin (Nystatin Powder 15 Gm) 1 applic TOP BID [facility] Last Admin: 10/14/21 21:09 Dose: 1 applic Ondansetron HCl (Ondansetron 4 Mg/2 Ml Vial) 4 mg IVP Q4HR PRN PRN Reason: Nausea / Vomiting Last Admin: 10/14/21 04:37 Dose: 4 mg Potassium Chloride (Potassium Chloride 20 Meq Tablet) 40 meq PO ONCE ONE Stop: 10/15/21 07:46 Prochlorperazine Edisylate (Prochlorperazine 10 Mg/2 Ml Vial) 10 mg IVP Q6HR PRN PRN Reason: Nausea / Vomiting Sodium Chloride (Sodium Chloride Flush 0.9% 10 Ml Syringe) 10 ml IVP PRN PRN PRN Reason: NEEDED PER PROVIDER ORDERS Last Admin: 10/14/21 13:15 Dose: 10 ml Sodium Chloride (Sodium Chloride Flush 0.9% 10 Ml Syringe) 10 ml IVP 0100,0900,1700 [facility] Last Admin: 10/15/21 00:28 Dose: 10 ml Albuterol 2.5 mg INH PRN PRN 10/14/21 Cyclobenzaprine [Flexeril] 10 mg PO QPM 10/14/21 Fluticasone [Flonase] 1 spray MEENU PRN PRN 10/14/21 Ibuprofen [Motrin] 800 mg PO PRN PRN 10/14/21 Loratadine [Allergy Relief] 10 mg PO PRN PRN 10/14/21 Losartan Potassium [Cozaar] 100 mg PO DAILY 10/14/21 Montelukast [Singulair] 10 mg PO QPM 10/14/21 Omeprazole 40 mg PO DAILY 10/14/21 Promethazine [Phenergan] 25 mg PO Q6H PRN 10/14/21 Spironolactone [Aldactone] 100 mg PO DAILY 10/14/21 Topiramate [Topiramate ER] 100 mg PO DAILY 10/14/21 amLODIPine [Norvasc] 10 mg PO DAILY 10/14/21 oxyCODONE/ACET 5/325 [Percocet 5 mg/325 mg] 1 tab PO Q6H PRN 10/14/21 Objective - Vital Signs/Intake & Output Reviewed Vital Signs: Yes Vital Signs: Vital Signs x48h Temp Pulse Resp BP BP Pulse Ox 10/15/21 06:25 166/65 H 10/15/21 05:55 196/97 H 10/15/21 04:46 36.2 C L 73 20 196/97 H 96 10/15/21 01:01 70 170/79 H 10/15/21 00:45 71 185/80 H 10/15/21 00:31 71 184/84 H 10/15/21 00:30 184/84 H 10/15/21 00:15 68 194/83 H 10/15/21 00:10 72 194/85 H 10/15/21 00:05 62 199/88 H 10/15/21 00:00 218/98 H 10/14/21 23:58 18 218/98 H Intake & Output: Intake & Output 10/12/21 10/13/21 10/14/21 10/15/21 23:59 23:59 23:59 23:59 Intake Total 300 4453.334 2373.333 1575 Output Total 1000 1875 Balance 300 3453.334 030.271 6034 - Objective General Appearance: positive: No acute distress, Alert Eyes Bilateral: positive: Normal inspection, Conjunctivae nml ENT: positive: ENT inspection nml Neck: positive: Nml inspection Respiratory: positive: No respiratory distress. negative: Wheezes, Rales Cardiovascular: positive: No murmur. negative: Tachycardia Abdomen: positive: No distention, Tenderness (Right lower quadrant). negative: Non-tender, Guarding, Rebound Skin: positive: Warm, Dry Extremities: positive: No pedal edema Neurologic/Psychiatric: negative: Disoriented to person, Disoriented to place - Lab Results Fish Bones: 10/15/21 04:28 10/15/21 04:28 Other Labs: Lab Results x24hrs 10/15/21 10/15/21 Range/Units 04:28 04:28 WBC 10.8 (4.8-10.8) x10^3/uL RBC 3.84 L (4.20-5.40) 10^6/uL Hgb 11.0 L (12.0-16.0) g/dL Hct 34.7 L (37.0-47.0) % MCV 90.4 (81.0-99.0) fL MCH 28.6 (27.0-31.0) pg MCHC 31.7 L (32.0-36.0) g/dL RDW 14.0 (12.0-15.0) % Plt Count 252 (130-450) 10^3/uL MPV 10.9 H (7.9-10.8) fL Neut # (Auto) 9.1 H (1.5-6.6) 10^3/uL Lymph # (Auto) 1.0 L (1.5-3.5) 10^3/uL [place] # (Auto) 0.7 (0.0-1.0) 10^3/uL Eos # (Auto) 0.0 (0.0-0.7) 10^3/uL Baso # (Auto) 0.0 (0.0-0.1) 10^3/uL Absolute Nucleated RBC 0.00 x10^3/uL Nucleated RBC % 0.0 /100WBC Sodium 138 (135-145) mmol/L Potassium 3.0 L (3.5-5.0) mmol/L Chloride 102 (101-111) mmol/L Carbon Dioxide 23 (21-32) mmol/L Anion Gap 13.0 (6-13) BUN 13 (6-20) mg/dL Creatinine 0.9 (0.4-1.0) mg/dL Estimated GFR (MDRD) 63 L (>89) Glucose 104 H (70-100) mg/dL Calcium 8.3 L (8.5-10.3) mg/dL Magnesium 1.9 (1.7-2.8) mg/dL ABX Reporting Has patient been on IV antibiotics over the past 48 hours?: Yes Assessment/Plan - Problem List (1) Sigmoid diverticulitis Impression: She continues to improve. CT showed diverticulitis with microperforations. Her white blood cell count is now normal and her pain is improving. We will start her on a clear liquid diet today. We will continue cefepime and Flagyl but discontinue vancomycin. Continue pain control with Toradol Dilaudid as needed. Zofran as needed for nausea. We will look to advance her diet over the next 24 to 48 hours. If she has worsening pain or an increasing white count/fever then we will need to consider repeating imaging. Appreciate general surgery input. (2) HTN (hypertension) Impression: She still remains quite hypertensive. We gave her a second dose of amlodipine 5 mg yesterday afternoon. We will increase her dose to 10 mg today as well as the losartan to 100 mg daily. She was taking both of these previously for her hypertension. She was also taking spironolactone in addition. If she remains hypertensive despite both of the antihypertensives, then we will look to add hy drochlorothiazide. (3) Headache Impression: Chronic and stable. We will continue Fioricet as needed. We will resume Topamax at lower dose on discharge and she can follow-up with a primary care provider for further management. (4) Fibromyalgia Impression: Stable. She will continue outpatient follow-up with her primary care provider on discharge. (5) Hypokalemia Impression: Her potassium is decreased morning at 3.0. We will replace this orally and recheck in the afternoon. (6) RACH (acute kidney injury) Impression: This is resolved.
[2021-10-15] MEDS: LOSARTAN 50 MG TABLET PO SCH (08:30)
[2021-10-15] MEDS: CEFEPIME 2 GM in SODIUM CHLORIDE 0.9% MINIBAG 100 ML IV SCH ×2 (08:31→22:02)
[2021-10-15] MEDS: amLODIPine 5 MG TABLET PO SCH (08:31)
[2021-10-15] MEDS: ENOXAPARIN 40 MG/0.4 ML SYRINGE SUBQ SCH (08:32)
[2021-10-15] MEDS: NYSTATIN POWDER 15 GM TOP SCH ×2 (08:32→21:24)
[2021-10-15] MEDS: KETOROLAC 15 MG/ML VIAL IVP PRN ×4 (08:34→21:16)
[2021-10-15] MEDS: ACETAMINOPHEN 325 MG TABLET PO PRN (10:44)
[2021-10-16] MEDS: hydrALAZINE INJ 20 MG/ML VIAL IVP PRN ×2 (01:10→09:17)
[2021-10-16] MEDS: LACTATED RINGERS 1,000 ML IV SCH (01:18)
[2021-10-16] MEDS: BUTALB/ACETAM/CAFF 50/325/40MG TABLET PO PRN ×2 (02:45→10:07)
[2021-10-16] MEDS: metroNIDAZOLE 500 MG/100 ML 500 MG/100 ML BAG IV SCH ×3 (04:16→19:55)
[2021-10-16 05:36] LABS: BASOPHILS % (AUTO) 0.5 %; EOSINOPHILS # (AUTO) 0.3 10^3/uL (0.0-0.7); EOSINOPHILS % (AUTO) 3.6 %; HCT - HEMATOCRIT 34.6 % (37.0-47.0); HGB - HEMOGLOBIN 11.1 g/dL (12.0-16.0); MEAN CORPUSCULAR HGB CONC 32.1 g/dL (32.0-36.0); MEAN CORPUSCULAR VOLUME 90.3 fL (81.0-99.0); MEAN PLATELET VOLUME 10.5 fL (7.9-10.8); MONOCYTES # (AUTO) 0.5 10^3/uL (0.0-1.0); MONOCYTES % (AUTO) 7.2 %; NEUTROPHILS # (AUTO) 5.6 10^3/uL (1.5-6.6); NEUTROPHILS % (AUTO) 74.9 %; PLT - PLATELET COUNT 287 10^3/uL (130-450); RED BLOOD COUNT 3.83 10^6/uL (4.20-5.40); RED CELL DISTRIBUTION WIDTH 14.1 % (12.0-15.0); WHITE BLOOD COUNT 7.5 x10^3/uL (4.8-10.8)
[2021-10-16 05:41] LABS: CALCIUM 8.5 mg/dL (8.5-10.3); CREATININE 0.8 mg/dL (0.4-1.0); MAGNESIUM 1.8 mg/dL (1.7-2.8); POTASSIUM 2.8 mmol/L (3.5-5.0)
[2021-10-16] MEDS ORDERED: POTASSIUM CHLORIDE 20 MEQ TABLET PO ONE ×2 (07:30→15:37)
[2021-10-16] MEDS: amLODIPine 5 MG TABLET PO SCH (08:01)
[2021-10-16] MEDS: LOSARTAN 50 MG TABLET PO SCH (08:01)
[2021-10-16] MEDS: ENOXAPARIN 40 MG/0.4 ML SYRINGE SUBQ SCH (08:02)
[2021-10-16] MEDS: POTASSIUM CHLOR 10 MEQ/100 ML 10 MEQ/100 ML BAG IV SCH ×2 (08:02→10:07)
[2021-10-16] MEDS: SODIUM CHLORIDE FLUSH 0.9% 10 ML SYRINGE IVP SCH ×2 (08:02→17:32)
[2021-10-16] MEDS: NYSTATIN POWDER 15 GM TOP SCH ×2 (08:14→21:29)
[2021-10-16] MEDS: CEFEPIME 2 GM in SODIUM CHLORIDE 0.9% MINIBAG 100 ML IV SCH ×2 (09:17→21:28)
[2021-10-16] MEDS: polyethylene glycoL 3350 17 GM PACKET PO SCH (09:21)
[2021-10-16] MEDS ORDERED: ALBUTEROL NEB 2.5 MG/3 ML INH PRN (10:07)
[2021-10-16] MEDS: POTASSIUM CHLORIDE 20 MEQ TABLET PO SCH (12:27)
--- NOTE | 2021-10-16 12:41 | PROVIDER PROGRESS NOTE ---
Subjective - Prog Note Date Prog Note Date: 10/16/21 - Subjective Subjective: She feels better today. Her abdominal pain is improved. Tolerating a diet with minimal pain. She has only had a full liquid diet so far. Current Medications - Current Medications Current Medications: Active Medications Acetaminophen (Acetaminophen 325 Mg Tablet) 650 mg PO Q4HR PRN PRN Reason: Pain or Fever > 38C (100.4F) Last Admin: 10/15/21 10:44 Dose: 650 mg Acetaminophen/Butalbital/Caffeine (Butalb/Acetam/Caff 50/325/40mg Tablet) 1 tab PO Q4HR PRN PRN Reason: HEADACHE Last Admin: 10/16/21 10:07 Dose: 1 tab Albuterol (Albuterol Neb 2.5 Mg/3 Ml) 2.5 mg INH RTQ4H PRN PRN Reason: Wheezing Last Admin: 10/16/21 12:03 Dose: 2.5 mg Amlodipine Besylate (Amlodipine 5 Mg Tablet) 10 mg PO DAILY [facility] Last Admin: 10/16/21 08:01 Dose: 10 mg Enoxaparin Sodium (Enoxaparin 40 Mg/0.4 Ml Syringe) 40 mg SUBQ DAILY [facility] Last Admin: 10/16/21 08:02 Dose: 40 mg Hydromorphone HCl (Hydromorphone 0.5 Mg/0.5 Ml Syringe) 1 mg IVP Q2H PRN PRN Reason: Pain 8 to 10 Last Admin: 10/14/21 16:16 Dose: 1 mg Cefepime HCl 2 gm/ Sodium (Chloride) 100 mls @ 200 mls/hr IV BID [facility] Last Infusion: 10/16/21 09:50 Dose: Infused Metronidazole (Flagyl 500 Mg/100 Ml) 500 mg in 100 mls @ 100 mls/hr IV Q8H [facility] Last Admin: 10/16/21 12:27 Dose: 100 mls/hr Ketorolac Tromethamine (Ketorolac 15 Mg/Ml Vial) 15 mg IVP Q6HR PRN PRN Reason: PAIN Stop: 10/19/21 10:07 Last Admin: 10/15/21 21:16 Dose: 15 mg Losartan Potassium (Losartan 50 Mg Tablet) 100 mg PO DAILY [facility] Last Admin: 10/16/21 08:01 Dose: 100 mg Nystatin (Nystatin Powder 15 Gm) 1 applic TOP BID [facility] Last Admin: 10/16/21 08:14 Dose: 1 applic Ondansetron HCl (Ondansetron 4 Mg/2 Ml Vial) 4 mg IVP Q4HR PRN PRN Reason: Nausea / Vomiting Last Admin: 10/14/21 04:37 Dose: 4 mg Polyethylene Glycol (Polyethylene Glycol 3350 17 Gm Packet) 17 gm PO DAILY [facility] Last Admin: 10/16/21 09:21 Dose: Not Given Potassium Chloride (Potassium Chloride 20 Meq Tablet) 20 meq PO DAILYWM [facility] Last Admin: 10/16/21 12:27 Dose: 20 meq Prochlorperazine Edisylate (Prochlorperazine 10 Mg/2 Ml Vial) 10 mg IVP Q6HR PRN PRN Reason: Nausea / Vomiting Sodium Chloride (Sodium Chloride Flush 0.9% 10 Ml Syringe) 10 ml IVP PRN PRN PRN Reason: NEEDED PER PROVIDER ORDERS Last Admin: 10/14/21 13:15 Dose: 10 ml Sodium Chloride (Sodium Chloride Flush 0.9% 10 Ml Syringe) 10 ml IVP 0100,0900,1700 [facility] Last Admin: 10/16/21 08:02 Dose: Not Given Albuterol 2.5 mg INH PRN PRN 10/14/21 Cyclobenzaprine [Flexeril] 10 mg PO QPM 10/14/21 Fluticasone [Flonase] 1 spray MEENU PRN PRN 10/14/21 Ibuprofen [Motrin] 800 mg PO PRN PRN 10/14/21 Loratadine [Allergy Relief] 10 mg PO PRN PRN 10/14/21 Losartan Potassium [Cozaar] 100 mg PO DAILY 10/14/21 Montelukast [Singulair] 10 mg PO QPM 10/14/21 Omeprazole 40 mg PO DAILY 10/14/21 Promethazine [Phenergan] 25 mg PO Q6H PRN 10/14/21 Spironolactone [Aldactone] 100 mg PO DAILY 10/14/21 Topiramate [Topiramate ER] 100 mg PO DAILY 10/14/21 amLODIPine [Norvasc] 10 mg PO DAILY 10/14/21 oxyCODONE/ACET 5/325 [Percocet 5 mg/325 mg] 1 tab PO Q6H PRN 10/14/21 Objective - Vital Signs/Intake & Output Reviewed Vital Signs: Yes Vital Signs: Vital Signs x48h Temp Pulse Pulse Resp BP BP Pulse Ox 10/16/21 12:00 76 18 10/16/21 09:57 144/65 H 10/16/21 09:47 144/65 H 10/16/21 09:17 175/92 H 10/16/21 08:00 36.4 C L 67 19 188/95 H 94 10/16/21 05:00 36.3 C L 72 20 166/95 H 96 Intake & Output: Intake & Output 10/13/21 10/14/21 10/15/21 10/16/21 23:59 23:59 23:59 23:59 Intake Total 4453.334 2373.333 4136.667 4006.667 Output Total 1000 1875 Balance 3453.334 890.659 7729.667 4006.667 - Objective General Appearance: positive: No acute distress, Alert Eyes Bilateral: positive: Normal inspection, Conjunctivae nml ENT: positive: ENT inspection nml Neck: positive: Nml inspection Respiratory: positive: No respiratory distress. negative: Wheezes, Rales Cardiovascular: positive: Regular rate & rhythm. negative: Irregularly irregular, Tachycardia Abdomen: positive: Tenderness (Mild tenderness in lower quadrants.) Skin: positive: Warm, Dry Extremities: positive: No pedal edema Neurologic/Psychiatric: negative: Disoriented to person, Disoriented to place - Lab Results Fish Bones: 10/16/21 04:56 10/16/21 12:59 Other Labs: Lab Results x24hrs 10/16/21 10/16/21 Range/Units 04:56 04:56 WBC 7.5 (4.8-10.8) x10^3/uL RBC 3.83 L (4.20-5.40) 10^6/uL Hgb 11.1 L (12.0-16.0) g/dL Hct 34.6 L (37.0-47.0) % MCV 90.3 (81.0-99.0) fL MCH 29.0 (27.0-31.0) pg MCHC 32.1 (32.0-36.0) g/dL RDW 14.1 (12.0-15.0) % Plt Count 287 (130-450) 10^3/uL MPV 10.5 (7.9-10.8) fL Neut # (Auto) 5.6 (1.5-6.6) 10^3/uL Lymph # (Auto) 1.0 L (1.5-3.5) 10^3/uL [place] # (Auto) 0.5 (0.0-1.0) 10^3/uL Eos # (Auto) 0.3 (0.0-0.7) 10^3/uL Baso # (Auto) 0.0 (0.0-0.1) 10^3/uL Absolute Nucleated RBC 0.00 x10^3/uL Nucleated RBC % 0.0 /100WBC Sodium 142 (135-145) mmol/L Potassium 2.8 L (3.5-5.0) mmol/L Chloride 105 (101-111) mmol/L Carbon Dioxide 26 (21-32) mmol/L Anion Gap 11.0 (6-13) BUN 10 (6-20) mg/dL Creatinine 0.8 (0.4-1.0) mg/dL Estimated GFR (MDRD) 72 L (>89) Glucose 118 H (70-100) mg/dL Calcium 8.5 (8.5-10.3) mg/dL Magnesium 1.8 (1.7-2.8) mg/dL ABX Reporting Has patient been on IV antibiotics over the past 48 hours?: Yes Assessment/Plan - Problem List (1) Sigmoid diverticulitis Impression: Continues to show significant improvement. Her white blood cell count is now within normal limits. We will advance her diet to a soft diet today and if she continues to do well we will plan to discharge her tomorrow on oral antibiotics to complete 10 to 14 days of therapy. Continue cefepime and Flagyl for the time being. (2) HTN (hypertension) Impression: Her blood pressure is improved after increasing losartan and amlodipine. We will discharge her on these 2 antihypertensives and she will need close follow- up with her primary care physician. (3) Headache Impression: Improved but this is an ongoing problem for her. We will resume Topamax on discharge. Continue with Tylenol and Fioricet as needed. (4) Hypokalemia Impression: She is hypokalemic again this morning. We will replace this orally and recheck in the afternoon. She will need potassium supplementation on discharge. (5) Fibromyalgia Impression: She will follow-up on outpatient basis for management of this. (6) RACH (acute kidney injury) Impression: Resolved.
[2021-10-16 13:22] LABS: CALCIUM 8.8 mg/dL (8.5-10.3); CREATININE 0.8 mg/dL (0.4-1.0); POTASSIUM 3.4 mmol/L (3.5-5.0)
[2021-10-16] MEDS ORDERED: hydrALAZINE INJ 20 MG/ML VIAL IVP ONE (22:58)
[2021-10-17] MEDS: SODIUM CHLORIDE FLUSH 0.9% 10 ML SYRINGE IVP SCH ×2 (01:59→08:21)
[2021-10-17] MEDS: SODIUM CHLORIDE FLUSH 0.9% 10 ML SYRINGE IVP PRN ×2 (02:04→04:54)
[2021-10-17] MEDS: KETOROLAC 15 MG/ML VIAL IVP PRN (02:04)
[2021-10-17] MEDS: metroNIDAZOLE 500 MG/100 ML 500 MG/100 ML BAG IV SCH (04:54)
[2021-10-17 06:15] LABS: BASOPHILS % (AUTO) 0.4 %; HCT - HEMATOCRIT 37.8 % (37.0-47.0); LYMPHOCYTES # (AUTO) 1.2 10^3/uL (1.5-3.5); LYMPHOCYTES % (AUTO) 15.2 %; MEAN CORPUSCULAR HEMOGLOBIN 28.5 pg (27.0-31.0); MEAN CORPUSCULAR HGB CONC 31.7 g/dL (32.0-36.0); MEAN CORPUSCULAR VOLUME 89.8 fL (81.0-99.0); MEAN PLATELET VOLUME 10.3 fL (7.9-10.8); MONOCYTES # (AUTO) 0.6 10^3/uL (0.0-1.0); MONOCYTES % (AUTO) 7.5 %; NEUTROPHILS % (AUTO) 75.4 %; PLT - PLATELET COUNT 330 10^3/uL (130-450); RED BLOOD COUNT 4.21 10^6/uL (4.20-5.40); RED CELL DISTRIBUTION WIDTH 14.4 % (12.0-15.0)
[2021-10-17 06:22] LABS: CALCIUM 8.9 mg/dL (8.5-10.3); CREATININE 0.7 mg/dL (0.4-1.0); MAGNESIUM 1.8 mg/dL (1.7-2.8); POTASSIUM 3.6 mmol/L (3.5-5.0)
--- NOTE | 2021-10-17 07:40 | Discharge Plan ---
Discharge Plan Problem Reviewed?: Yes Disposition: Home, Self Care Condition: Stable Prescriptions: oxyCODONE [Roxicodone] 5 mg PO Q6HR PRN #10 tablet PRN Reason: Pain Ciprofloxacin [Cipro] 500 mg PO BID 9 Days #36 tablet Docusate Sodium 100Mg Capsule [Colace 100Mg Capsule] 100 mg PO DAILY #14 cap Losartan Potassium [Cozaar] 100 mg PO DAILY #30 tab metroNIDAZOLE [Flagyl] 500 mg PO TID 9 Days #27 tablet Saccharomyces Boulardii [Florastor] 250 mg PO BIDWM 9 Days #18 cap Potassium Chloride [K-Dur] 20 meq PO DAILYWM #30 tablet amLODIPine [Norvasc] 10 mg PO DAILY #60 tab Topiramate [Topamax] 25 mg PO QD #30 tablet Ondansetron Odt [Zofran Odt] 4 mg TL Q6H PRN #10 tablet PRN Reason: Nausea / Vomiting Diet: Low Sodium Activity Restrictions: Activity as Tolerated Instruction Topics: Diverticulitis Dc, Blood Pressure Dc Health Concerns: You were admitted to the hospital with diverticulitis which is inflammation of the colon. You were treated with IV antibiotics with improvement in your symptoms. He has since been tolerating a diet and you are now stable for discharge. Your blood pressure is also been significantly elevated and we have restarted some of your blood pressure medications. Plan of Treatment: Please take ciprofloxacin 500 mg twice a day and metronidazole 500 mg 3 times a day for 9 more days to complete 2 weeks of therapy for diverticulitis. You will need to follow-up with a primary care physician and have a referral to general surgery or gastroenterology to have a colonoscopy in 6 to 8 weeks. We will also need to take amlodipine and losartan for your hypertension. Your blood pressure still quite elevated and you will need to follow-up with a primary care doctor to monitor this. Please try and check your blood pressure at home once a day and keep a log of it. Please try and adhere to a low-sodium diet as this can help control your blood pressure. If your blood pressure still elevated on follow-up then you will likely need a third blood pressure medication. Please take potassium once a day as your potassium has been on the lower side. This has been prescribed for you. I have also prescribed you Topamax for your migraines. You were previously taking 100 mg a day but given you have been off this medication for quite some time now, we will need to resume it at a lower dose of 25 mg once a day. You will need to follow-up with a primary care provider to have this titrated. Assessment: The patient expressed understanding of the treatment plan. Additional Instructions or Follow Up instructions: Please follow-up with a primary care physician in 1 week. Please return to the emergency department if you develop worsening abdominal pain, fevers, chills, nausea, vomiting. No Smoking: If you smoke, Please STOP! Call for help.
--- NOTE | 2021-10-17 07:41 | DISCHARGE SUMMARY ---
"Discharge Summary Admit Date: 10/12/21 Discharge Date: 10/17/21 Discharging Provider: Cesar Beyer Primary Care Provider: Haritha PCP Code Status: Attempt Resuscitation Condition at Discharge: Stable Discharge Disposition: 01 Home, Self Care - DIAGNOSES Admission Diagnoses: Acute diverticulitis Perforation of sigmoid colon due to diverticulitis RACH Hypertension Hypokalemia Morbid obesity Fibromyalgia Discharge Diagnoses with Status of Each Condition: Sigmoid diverticulitis - improved. Hypertension - stable. Headache - stable. Hypokalemia - stable Fibromyalgia - stable. RACH - resolved. - HPI History of Present Illness: H&P per Dr. Suazo: This is a 66-year-old white female with a history of morbid obesity, hypertension and fibromyalgia. She has not had a PCP in about a year, has had no medications prescribed for her hypertension or pain meds for fibromyalgia for a year. She states she only takes [id number] medicines. The patient developed a week of right lower quadrant abdominal pain, diarrhea, nausea but no vomiting. Because her symptoms were worsened today, she presented to the ED. Blood pressure on presentation was 206/113 but she was in severe pain. Work-up in the ED showed that her WBC was [address] imaging showed sigmoid diverticulitis with microperforations. The patient was given several IV pain medicines which helped improve her elevated blood pressure and she was started on IV fluids and got IV Zosyn. We discussed her wishes for CODE BLUE status and she wants to be a Full Code. - CONSULTS | PROCEDURES Consultations: General Surgery - HOSPITAL COURSE Hospital Course: She was admitted for sigmoid diverticulitis with microperforations. She was treated with cefepime and Flagyl IV. Her acute kidney injury resolved with IV fluids. She was made n.p.o. initially and her diet was slowly advanced over the next few days as her pain resolved. She tolerated a diet with minimal pain and she was discharged on oral ciprofloxacin and Flagyl for 9 more days to complete 2 weeks of therapy. She was noted be quite hypertensive and has been off of her antihypertensives for over 1 year. She was resumed on losartan and amlodipine. She remained hypertensive with systolics in the 160s to 170s and she was asked to follow-up with her primary care physician for further management of her hypertension. She was also resumed on Topamax but at 25 mg daily for her history of migraines. She is prescribed oxycodone and Zofran on discharge for pain control and nausea. She was asked to follow-up with a primary care physician and general surgery for a colonoscopy in 6 to 8 weeks. - ALLERGIES Allergies/Adverse Reactions: Allergies Allergy/AdvReac Type Severity Reaction Status Date / Time No Known Drug Allergies Allergy Verified 10/12/21 21:12 - MEDICATIONS Home Medications: Ambulatory Orders Medication Instructions Recorded Confirmed Albuterol 2.5 mg INH PRN PRN 10/14/21 10/14/21 Fluticasone [Flonase] 1 spray MEENU PRN PRN 10/14/21 10/14/21 Montelukast [Singulair] 10 mg PO QPM 10/14/21 10/14/21 Omeprazole 40 mg PO DAILY 10/14/21 10/14/21 Ciprofloxacin [Cipro] 500 mg PO BID 9 Days #36 tablet 10/17/21 Docusate Sodium 100Mg Capsule 100 mg PO DAILY #14 cap 10/17/21 [Colace 100Mg Capsule] Losartan Potassium [Cozaar] 100 mg PO DAILY #30 tab 10/17/21 Ondansetron Odt [Zofran Odt] 4 mg TL Q6H PRN #10 tablet 10/17/21 Potassium Chloride [K-Dur] 20 meq PO DAILYWM #30 tablet 10/17/21 Saccharomyces Boulardii [Florastor] 250 mg PO BIDWM 9 Days #18 cap 10/17/21 Topiramate [Topamax] 25 mg PO QD #30 tablet 10/17/21 amLODIPine [Norvasc] 10 mg PO DAILY #60 tab 10/17/21 metroNIDAZOLE [Flagyl] 500 mg PO TID 9 Days #27 tablet 10/17/21 oxyCODONE [Roxicodone] 5 mg PO Q6HR PRN #10 tablet 10/17/21 - PHYSICAL EXAM AT DISCHARGE General Appearance: positive: No acute distress, Alert Eyes Bilateral: positive: Normal inspection, Conjunctivae nml ENT: positive: ENT inspection nml Neck: positive: Nml inspection Respiratory: positive: No respiratory distress. negative: Wheezes, Rales Cardiovascular: positive: Regular rate & rhythm, No murmur. negative: Tachycardia Abdomen: positive: Non-tender, No distention. negative: Tenderness Skin: positive: Warm, Dry Extremities: positive: Pedal edema (Trace edema in bilateral lower extremities.) Neurologic/Psychiatric: negative: Disoriented to person, Disoriented to place Physical Exam Other/Comments: Vital Signs - 24 hr 10/16/21 10/16/21 10/16/21 19:14 20:45 21:00 Temperature 36.3 C L Heart Rate [ 84 Brachial] Heart Rate [ Radial] Respiratory 17 Rate Blood Pressure Blood Pressure 172/71 H [Left Brachial artery] Blood Pressure 197/97 H 158/101 H [Right Brachial artery] O2 Saturation 97 10/17/21 10/17/21 10/17/21 00:39 01:58 05:00 Temperature 36.8 C 36.6 C Heart Rate [ 71 Brachial] Heart Rate [ 90 Radial] Respiratory 18 18 Rate Blood Pressure 200/102 H Blood Pressure 181/102 H [Left Brachial artery] Blood Pressure 151/69 H [Right Brachial artery] O2 Saturation 95 97 10/17/21 10/17/21 06:50 12:30 Temperature 36.9 C 36.8 C Heart Rate [ 70 76 Brachial] Heart Rate [ Radial] Respiratory 16 17 Rate Blood Pressure Blood Pressure [Left Brachial artery] Blood Pressure 179/97 H 171/89 H [Right Brachial artery] O2 Saturation 96 95 Oxygen O2 Source Room air - LABS Result Diagrams: 10/17/21 05:50 10/17/21 05:50 - DIAGNOSTIC IMAGING Diagnostic Imaging Results: Final report reviewed - FOLLOW UP Follow Up: She was given a list of primary care physicians to contact for a follow-up appointment within 1 to 2 weeks. She was also asked to follow-up with general s [email or web address] for a colonoscopy in 6 to 8 weeks. - TIME SPENT Time Spent in Discharge (Minutes): 33"
[2021-10-17] MEDS: POTASSIUM CHLORIDE 20 MEQ TABLET PO SCH (08:20)
[2021-10-17] MEDS: LOSARTAN 50 MG TABLET PO SCH (08:20)
[2021-10-17] MEDS: ENOXAPARIN 40 MG/0.4 ML SYRINGE SUBQ SCH (08:20)
[2021-10-17] MEDS: metroNIDAZOLE 250 MG TABLET PO SCH ×2 (08:20→12:43)
[2021-10-17] MEDS: amLODIPine 5 MG TABLET PO SCH (08:20)
[2021-10-17] MEDS: NYSTATIN POWDER 15 GM TOP SCH (08:21)
[2021-10-17] MEDS: polyethylene glycoL 3350 17 GM PACKET PO SCH (08:21)
[2021-10-17] MEDS ORDERED: CIPROFLOXACIN 250 MG TABLET PO SCH (09:00)
[2021-10-17 13:05] VITALS: BP 171/89
== END 2021-10-17 12:30 | disposition home or self-care (01) | DRG 392 ==
LOC: ED 21:05 → MS2 23:50
PROVIDERS: ADMIT Internal Medicine; ATTEND Internal Medicine
DX: K57.20 Diverticulitis of large intestine with perforation and abscess without bleeding (principal); N17.9 Acute kidney failure, unspecified; Z68.42 Body mass index [BMI] 45.0-49.9, adult; E87.6 Hypokalemia; I10 Essential (primary) hypertension; M79.7 Fibromyalgia; E66.01 Morbid (severe) obesity due to excess calories; T46.5X6A Underdosing of other antihypertensive drugs, initial encounter; Z91.120 Patient's intentional underdosing of medication regimen due to financial hardship; R51.9 Headache, unspecified; T42.6X6A Underdosing of other antiepileptic and sedative-hypnotic drugs, initial encounter; T50.906A Underdosing of unspecified drugs, medicaments and biological substances, initial encounter; Z20.822 Contact with and (suspected) exposure to COVID-19; F17.210 Nicotine dependence, cigarettes, uncomplicated
CPT/HCPCS: 36415; 74177; 80048; 80053; 81001; 83036; 83690; 83735; 84100; 84443; 85025; 87635; 94640; 96361; 96374; 96375; 96376; 99284; 99285; A9270; J1170; J1650; J3370; J7120; Q9967; 81003; 87086

== ENCOUNTER 2021-10-22 01:10 | Emergency (ER) | payer MEDICAID ==
[2021-10-22] MEDS ORDERED: MORPHINE 2 MG/ML CARPUJECT IVP STA (01:30)
[2021-10-22] MEDS ORDERED: SODIUM CHLORIDE 0.9% 1,000 ML IV STA (01:30)
[2021-10-22] MEDS ORDERED: ONDANSETRON 4 MG/2 ML VIAL IVP STA ×3 (01:30→08:08)
--- NOTE | 2021-10-22 01:34 | ED Physician Documentation ---
PD HPI ABD PAIN - Stated complaint Stated Complaint: ABD/BACK PX - Chief complaint Chief Complaint: Abd Pain - Additional information Additional information: Patient with a history of hypertension and recent admission for diverticulitis with microperforation presenting for evaluation of lower abdominal pain that started this afternoon at 2 PM. She was admitted from October 12-And discharged home on ciprofloxacin and Flagyl.She did not require surgery during the admission. Patient has been compliant with her antibiotics upon discharge.She denies nausea or vomiting. She has pain in the lower back. Nothing makes her pain better or worse. She tried oxycodone at home without relief. The pain is sharp.She reports compliance with her antihypertensive medications but states that Her doses are not correct from what she used to take. She did follow-up at the walk-in clinic yesterday and her blood pressure was noted to be elevated. There were no dose adjustments made.She denies fever, headache, chest pain, difficulty breathing, cough. She denies dysuria or Urinary frequency. Her last bowel movement was this morning. Review of Systems Constitutional: denies: Fever Nose: denies: Congestion Cardiac: denies: Chest pain / pressure, Palpitations Respiratory: denies: Dyspnea, Cough GI: reports: Abdominal Pain. 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 HEENT: Tonsil/Adenoidectomy - Present Medications Home Medications: Ambulatory Orders Medication Instructions Recorded Confirmed Albuterol 2.5 mg INH PRN PRN 10/14/21 10/22/21 Fluticasone [Flonase] 1 spray MEENU PRN PRN 10/14/21 10/22/21 Montelukast [Singulair] 10 mg PO QPM 10/14/21 10/22/21 Omeprazole 40 mg PO DAILY 10/14/21 10/22/21 Ciprofloxacin [Cipro] 500 mg PO BID 9 Days #36 tablet 10/17/21 10/22/21 Docusate Sodium 100Mg Capsule 100 mg PO DAILY #14 cap 10/17/21 10/22/21 [Colace 100Mg Capsule] Losartan Potassium [Cozaar] 100 mg PO DAILY #30 tab 10/17/21 10/22/21 Ondansetron Odt [Zofran Odt] 4 mg TL Q6H PRN #10 tablet 10/17/21 10/22/21 Potassium Chloride [K-Dur] 20 meq PO DAILYWM #30 tablet 10/17/21 10/22/21 Saccharomyces Boulardii [Florastor] 250 mg PO BIDWM 9 Days #18 cap 10/17/21 10/22/21 amLODIPine [Norvasc] 10 mg PO DAILY #60 tab 10/17/21 10/22/21 metroNIDAZOLE [Flagyl] 500 mg PO TID 9 Days #27 tablet 10/17/21 10/22/21 oxyCODONE [Roxicodone] 5 mg PO Q6HR PRN #10 tablet 10/17/21 10/22/21 Topiramate [Topamax] 50 mg PO QD 10/22/21 10/22/21 hydroCHLOROthiazide [Hydrodiuril] 25 mg PO DAILY 10/22/21 10/22/21 - Allergies Allergies/Adverse Reactions: Allergies Allergy/AdvReac Type Severity Reaction Status Date / Time No Known Drug Allergies Allergy Verified 10/22/21 01:22 - Social History Does the pt smoke?: No Smoking Status: Never smoker Does the pt drink ETOH?: No Does the pt have substance abuse?: No - Immunizations Immunizations are current?: Yes - POLST Patient has POLST: No PD ED PE NORMAL - General General: Alert and oriented X 3, No acute distress, Well developed/nourished - HEENT HEENT: Atraumatic, PERRL, Moist mucous membranes - Neck Neck: Supple, no meningeal sign - Cardiac Cardiac: RRR, No gallop, Strong equal pulses - Respiratory Respiratory: No respiratory distress, Clear bilaterally - Abdomen Abdomen: Normal bowel sounds, Soft, Other (Diffuse abdominal tenderness to palpation, no mass) - Back Back: No CVA TTP - Derm Derm: Warm and dry - Extremities Extremities: No edema - Neuro Neuro: Normal speech - Psych Psych: Normal mood, Normal affect Results - Vitals Vitals: Vital Signs - 24 hr 10/22/21 10/22/21 10/22/21 01:18 01:22 02:19 Temperature 36.4 C L Heart Rate 75 75 61 Respiratory 18 14 Rate Blood Pressure 225/116 H 188/97 H O2 Saturation 98 99 95 10/22/21 10/22/21 10/22/21 02:59 03:00 03:26 Temperature Heart Rate 63 Respiratory 21 Rate Blood Pressure 180/93 H 176/97 H O2 Saturation 85 L 98 10/22/21 10/22/21 04:44 06:00 Temperature 36.6 C Heart Rate 58 L 62 Respiratory 14 17 Rate Blood Pressure 188/83 H 187/89 H O2 Saturation 98 96 Oxygen O2 Source Nasal cannula - EKG (time done) 0139 Rate: Rate (enter#) (67) Rhythm: NSR [place]: No: Normal Ischemia: T wave inversion (Lateral leads) Compare to prior EKG: Other (Significant motion artifact at the baseline) - Labs Labs: Laboratory Tests 10/22/21 10/22/21 10/22/21 01:30 01:30 01:30 WBC 11.3 H RBC 5.22 Hgb 15.0 Hct 47.2 H MCV 90.4 MCH 28.7 MCHC 31.8 L RDW 14.3 Plt Count 423 MPV 10.1 Neut # (Auto) 8.4 H Lymph # (Auto) 2.0 [place] # (Auto) 0.7 Eos # (Auto) 0.0 Baso # (Auto) 0.1 Absolute Nucleated RBC 0.00 Nucleated RBC % 0.0 Sodium 139 Potassium 3.5 Chloride 102 Carbon Dioxide 23 Anion Gap 14.0 H BUN 19 Creatinine 1.0 Estimated GFR (MDRD) 56 L Glucose 137 H Lactic Acid 1.1 Calcium 9.7 Total Bilirubin 0.5 AST 30 ALT 29 Alkaline Phosphatase 138 H Total Protein 8.0 Albumin 4.3 Globulin 3.7 Albumin/Globulin Ratio 1.2 Lipase 49 Urine Color Urine Clarity Urine pH Ur Specific [place] Urine Protein Urine Glucose (UA) Urine Ketones Urine Occult Blood Urine Nitrite Urine Bilirubin Urine Urobilinogen Ur Leukocyte Esterase Ur Microscopic Review Urine Culture Comments SARS-CoV-2 (PCR) 10/22/21 10/22/21 02:30 02:55 WBC RBC Hgb Hct MCV MCH MCHC RDW Plt Count MPV Neut # (Auto) Lymph # (Auto) [place] # (Auto) Eos # (Auto) Baso # (Auto) Absolute Nucleated RBC Nucleated RBC % Sodium Potassium Chloride Carbon Dioxide Anion Gap BUN Creatinine Estimated GFR (MDRD) Glucose Lactic Acid Calcium Total Bilirubin AST ALT Alkaline Phosphatase Total Protein Albumin Globulin Albumin/Globulin Ratio Lipase Urine Color YELLOW Urine Clarity CLEAR Urine pH 5.5 Ur Specific [place] <=1.005 Urine Protein NEGATIVE Urine Glucose (UA) NEGATIVE Urine Ketones NEGATIVE Urine Occult Blood NEGATIVE Urine Nitrite NEGATIVE Urine Bilirubin NEGATIVE Urine Urobilinogen 0.2 (NORMAL) Ur Leukocyte Esterase NEGATIVE Ur Microscopic Review NOT INDICATED Urine Culture Comments NOT INDICATED SARS-CoV-2 (PCR) NOT DETECTED PD MEDICAL DECISION MAKING - ED course ED course: 313 - Reviewed CT findings with general surgeon, Dr. Wells. He is recommending that we transfer the patient to a facility with interventional radiology capability that could possibly drain the abscess seen on the CT scan. 0355 - [facility] is at capacity but may have availability later this morning after their discharges. Patient is on their waiting list. 0600 - Discussed the case with Dr. Rick Casas at [facility], Overnight hospitalist. He agrees to accept the patient in transfer. 0700 - Patient is accepted at [facility].She is awaiting transfer. She appears stable at this time. Oncoming physician aware of patient. Departure - Departure Disposition: 02 Transfer Acute Care Hosp Clinical Impression: Perforation of sigmoid colon due to diverticulitis, Pelvis, female abscess, Uncontrolled hypertension Condition: Serious
[2021-10-22 01:35] LABS: BASOPHILS # (AUTO) 0.1 10^3/uL (0.0-0.1); BASOPHILS % (AUTO) 0.5 %; HCT - HEMATOCRIT 47.2 % (37.0-47.0); LYMPHOCYTES % (AUTO) 17.8 %; MEAN CORPUSCULAR HEMOGLOBIN 28.7 pg (27.0-31.0); MEAN CORPUSCULAR HGB CONC 31.8 g/dL (32.0-36.0); MEAN CORPUSCULAR VOLUME 90.4 fL (81.0-99.0); MEAN PLATELET VOLUME 10.1 fL (7.9-10.8); MONOCYTES # (AUTO) 0.7 10^3/uL (0.0-1.0); MONOCYTES % (AUTO) 6.4 %; NEUTROPHILS # (AUTO) 8.4 10^3/uL (1.5-6.6); NEUTROPHILS % (AUTO) 74.1 %; PLT - PLATELET COUNT 423 10^3/uL (130-450); RED BLOOD COUNT 5.22 10^6/uL (4.20-5.40); RED CELL DISTRIBUTION WIDTH 14.3 % (12.0-15.0); WHITE BLOOD COUNT 11.3 x10^3/uL (4.8-10.8)
[2021-10-22] MEDS ORDERED: IOVERSOL 320 100 ML VIAL IVP ONE ×2 (01:45→02:20)
[2021-10-22 01:46] LABS: ALBUMIN 4.3 g/dL (3.2-5.5); ALBUMIN/GLOBULIN RATIO 1.2 (1.0-2.2); BILIRUBIN,TOTAL 0.5 mg/dL (0.2-1.0); CALCIUM 9.7 mg/dL (8.5-10.3); POTASSIUM 3.5 mmol/L (3.5-5.0)
[2021-10-22] MEDS ORDERED: HYDROmorphone 1 MG/ML CARPUJECT IVP STA ×2 (02:44→08:47)
[2021-10-22 02:55] LABS: BILIRUBIN,URINE NEGATIVE (NEGATIVE); GLUCOSE, URINE (UA) NEGATIVE (NEGATIVE); KETONES,URINE (UA) NEGATIVE (NEGATIVE); LEUKOCYTE ESTERASE, URINE NEGATIVE (NEGATIVE); NITRITE,URINE NEGATIVE (NEGATIVE); OCCULT BLOOD,URINE NEGATIVE (NEGATIVE); PH,URINE 5.5 PH (5.0-7.5); PROTEIN,URINE NEGATIVE (NEGATIVE); UROBILINOGEN,URINE 0.2 (NORMAL) E.U./dL (NORMAL)
[2021-10-22 02:56] LABS: CLARITY,URINE CLEAR (CLEAR)
[2021-10-22] MEDS ORDERED: CEFEPIME 2 GM in SODIUM CHLORIDE 0.9% MINIBAG 100 ML IV STA (03:02)
[2021-10-22] MEDS ORDERED: metroNIDAZOLE 500 MG/100 ML 500 MG/100 ML BAG IV SCH (04:00)
[2021-10-22] MEDS ORDERED: KETOROLAC 15 MG/ML VIAL IVP STA (06:36)
--- NOTE | 2021-10-22 08:17 | CT Report ---
PROCEDURE: Abdomen/Pelvis W INDICATIONS: lower abd pain, diverticulitis with microperf CONTRAST: IV CONTRAST: Optiray 320 ml: 100 PO CONTRAST: *NO PO CONTRAST TECHNIQUE: After the administration of intravenous contrast, 5 mm thick sections acquired from the diaphragms to the symphysis. 5 mm thick coronal and sagittal reformats were acquired. For radiation dose reducti on, the following was used: automated exposure control, adjustment of mA and/or kV according to allie ent size. COMPARISON: 10/12/2021 FINDINGS: Image quality: Excellent. ABDOMEN: Lung bases: Lung bases are clear. Heart size is normal. Solid organs: Liver and spleen are normal in size and enhancement. Gallbladder is surgically absent Biliary system is non dilated. Pancreas enhances normally. No adrenal nodules. Kidneys demonstra te normal size and enhancement, without hydronephrosis. Peritoneum and bowel: Again noted is sigmoid diverticulitis. There is definite perforation with air p resent in the subjacent fat and a developing phlegmon. The phlegmon measures approximately 3 cm in di ameter. This occurs in a location which would not be easily amenable to drainage, and it is not yet l iquefied. Nodes and vessels: No retroperitoneal or mesenteric adenopathy by size criteria. Aorta and inferior vena cava are normal in size. Miscellaneous: Fat-containing umbilical hernia. PELVIS: Genitourinary: Bladder wall thickness is normal. Miscellaneous: Uterus is surgically absent. No inguinal hernias or adenopathy. Bones: No suspicious bony lesions. No vertebral body compression fractures. Lumbar degenerative ch jadon with severe canal stenosis at L4-L5. IMPRESSION: 1. Continued evidence of perforated diverticulitis of the sigmoid colon with extracolonic air in the subjacent tissues and developing phlegmon. 2. Incidental note is made of severe canal stenosis at L4-L5. Findings are concordant with preliminary interpretation provided by [facility]. Reviewed by: Seven Rivera MD on 10/22/2021 8:15 AM PDT Approved by: Seven Rivera MD on 10/22/2021 8:15 AM PDT Station ID: [id number]
[2021-10-22 09:16] VITALS: BP 159/77
== END 2021-10-22 09:54 | disposition short-term general hospital (02) ==
LOC: ED 01:10
DX: K57.20 Diverticulitis of large intestine with perforation and abscess without bleeding (principal); I10 Essential (primary) hypertension
CPT/HCPCS: 36415; 74177; 80053; 81003; 83605; 83690; 85025; 87635; 93005; 96365; 96367; 96375; 96376; 99284; 99285; J1170; Q9967; 81001; 87086